=== PATIENT | female | born 1935 | race Caucasian/White ===

== ENCOUNTER 2019-02-26 15:30 | Emergency (ER) | payer OTHER, MEDICARE ==
[2019-02-26 16:09] VITALS: BMI 33.8
--- NOTE | 2019-02-26 16:58 | PDOC ---
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 Pt was being rolled over this morning when G tube came out. Pt is unable to speak but states he can understand when she's in pain or discomfort. denies any pain or changes. Pt is at baseline. denies redness, warmth, leaking, bleeding, or drainage from G tube site. G tube was placed 3 years ago at [facility] and has needed to be replaced after accidental displacement approx 3x/yr which is usually done at [facility] but the doctor was not available today. Pt is on vent, AC12, TV 350, O2 35%, peep 5. denies fever or pain. I called [facility] and nurse stated there are no complaints; pt just needs G tube replaced, size 18. Past History - Past Medical History Allergies/Adverse Reactions: Allergies Allergy/AdvReac Type Severity Reaction Status Date / Time norepinephrine Allergy Verified 02/26/19 16:58 - Suicide/Smoking/Psychosocial Hx Smoking History: Never smoked Review of Systems - Review of Systems Able to Perform ROS?: No *Physical Exam - Vital Signs Last Vital Signs Temp Pulse Resp BP Pulse Ox 98.1 F 68 20 126/66 100 02/26/19 16:00 02/26/19 16:00 02/26/19 16:00 02/26/19 16:00 02/26/19 16:10 - Physical Exam Comments: 02/26/19 20:05 Gen: On trach, NAD, comfortable-appearing. HEENT: PERRL, MMM, NCAT. No conjunctival pallor. Sclera are non-icteric. Tracheostomy in place, no erythema, drainage, bleeding, or warmth. CV: Regular rate and rhythm. No murmurs, rubs, or gallops. PULM: No resp distress. CTAB, no wheezes, rales, or rhonchi. ABD: soft, NT/ND, no erythema/drainage/bleeding/warmth around G tube insertion site. MSK: No bony deformities. 2+ pulses in all extremities. NEURO: AAOx3. PERRL. 0/5 strength and no sensation in all extremities (chronic). EXTREMITIES: No cyanosis. No clubbing. No edema. PSYCH: Unable to assess. SKIN: Warm and dry. Normal capillary refill. No rashes. No jaundice. 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 G tube has been in for 3 years and has been replaced approx 3x/yr. No s/s concerning for obstruction, infection, or bleed. No other complaints, hemodynamically stable, baseline mental status. -Replace G tube 18 and XR w/contrast to confirm placement -Dispo: likely d/c home pending confirmation G tube placed successfully. XR confirms placement. states they are ready to go. Will dc to [facility]. Return precautions given. Pt's understands all dc instructions and all questions were answered. *DC/Admit/Observation/Transfer Diagnosis at time of Disposition: Gastrojejunostomy tube dislodgement - Discharge Dispostion Disposition: [facility] Condition at time of disposition: Improved Decision to Admit order: No - Referrals Referrals: Dalila Rodriguez [Primary Care Provider] - - Patient Instructions Printed Discharge Instructions: How to Care for Your PEG Tube Additional Instructions: You have been seen in the Emergency Department for your G tube displacement. We have replaced it and taken a X-ray to confirm it is in the correct place. Follow-up with your primary care doctor within 1 week. Return to the ED immediately if you the G tube dislodges, leaks, bleeds, or develops erythema or warmth, or if you experience fever or any other new or worsening symptom. - Post Discharge Activity
[2019-02-26 19:26] VITALS: TEMP 97.2
[2019-02-26 21:28] VITALS: BP 131/67; PULSE 68
== END 2019-02-26 21:50 ==
LOC: JER 15:30
PROC: 0D20XUZ Change Feeding Device in Upper Intestinal Tract, External Approach (ICD-10-PCS; principal; 2019-02-26)
DX: Z43.1 Encounter for attention to gastrostomy (principal); J44.9 Chronic obstructive pulmonary disease, unspecified; G30.9 Alzheimer's disease, unspecified; F02.80 Dementia in other diseases classified elsewhere, unspecified severity, without behavioral disturbance, psychotic disturbance, mood disturbance, and anxiety; I69.869 Other paralytic syndrome following other cerebrovascular disease affecting unspecified side; Z93.0 Tracheostomy status
CPT/HCPCS: 43762; 74190-TC-FY; 99282-25

== ENCOUNTER 2020-06-13 18:02 | Inpatient (IN) | payer OTHER, MEDICARE ==
[2020-06-13] MEDS ORDERED: VANCOMYCIN 1 GM in D5W (PRE-DOCKED) 1,000 MG/250 ML IVPB ONE (18:25)
[2020-06-13] MEDS ORDERED: PIPERACILLIN/TAZOB 4.5 GM 4.5 GM in DEXTROSE 5%-WATER 100 ML IVPB ONE (18:25)
[2020-06-13] MEDS ORDERED: NOREPINEPHRINE BITARTRATE 8,000 MCG/500 ML BAG IVPB SCH (18:30)
[2020-06-13] MEDS ORDERED: NOREPINEPHRINE BITARTRATE 4 MG/4 ML ML IV ONE (18:35)
[2020-06-13 18:39] LABS: INR 1.09 (0.83-1.09); PROTHROMBIN TIME (PATIENT) 13.2 SEC (9.7-13.0)
[2020-06-13 18:42] LABS: ACTIVATED PTT 17.5 SECONDS (25.2-36.5)
[2020-06-13] MEDS ORDERED: PIPERACILLIN/TAZOB 4.5 GM 4.5 GM/100 ML BAG IVPB ONE (18:52)
[2020-06-13] MEDS ORDERED: VANCOMYCIN 1 GRAM (PRE-DOCKED) 1,000 MG/250 ML BAG IVPB ONE (18:52)
[2020-06-13 19:01] LABS: BASO % 0.3 % (0-2.0); CHLORIDE 126 mmol/L (98-107); HEMOGLOBIN 12.3 GM/dL (10.7-15.3); LYMPH % 13.4 % (8-40); MCH 30.9 pg (25.7-33.7); MCHC 30.1 g/dl (32.0-36.0); MEAN CELL VOLUME 102.9 fl (80-96); MEAN PLT VOLUME 12.2 fl (7.5-11.1); MONO % 8.4 % (3.8-10.2); NEUT % 76.9 % (42.8-82.8); PLATELET COUNT 246 K/MM3 (134-434); RBC 3.99 M/mm3 (3.60-5.2); RDW 18.4 % (11.6-15.6); SODIUM 152 mmol/L (136-145); WHITE BLOOD COUNT 11.8 K/mm3 (4.0-10.0)
[2020-06-13 19:02] LABS: CALCIUM 7.5 mg/dL (8.5-10.1); CO2 20 mmol/L (21-32)
[2020-06-13 19:03] LABS: ALBUMIN 1.4 g/dl (3.4-5.0); BLOOD UREA NITROGEN 87.8 mg/dL (7-18); GLUCOSE,RANDOM 141 mg/dL (74-106)
[2020-06-13 19:06] LABS: CREATININE 1.1 mg/dL (0.55-1.3); SGOT/AST 9 U/L (15-37); SGPT/ALT 8 U/L (13-61)
[2020-06-13 19:08] LABS: BILIRUBIN,TOTAL 0.4 mg/dL (0.2-1); TOT PROT 4.9 g/dl (6.4-8.2)
[2020-06-13 19:09] LABS: ALK PHOS 108 U/L (45-117)
[2020-06-13 19:15] LABS: ANION GAP 7 MMOL/L (8-16)
[2020-06-13 19:18] LABS: POTASSIUM 7.1 mmol/L (3.5-5.1)
[2020-06-13] MEDS ORDERED: CALCIUM GLUCONATE 10% - 1,000 MG/10 ML VIAL IVPUSH ONE ×2 (19:18→22:34)
[2020-06-13] MEDS ORDERED: DEXTROSE 50%-WATER - 25 GM/50 ML VIAL IVPUSH ONE (19:19)
[2020-06-13] MEDS ORDERED: INSULIN REGULAR HUMAN 100 UNITS/ML *VIAL IVPUSH ONE (19:19)
[2020-06-13] MEDS ORDERED: SODIUM BICARBONATE 8.4% 50 MEQ/50 ML DISP.SYRIN IVPUSH ONE (19:20)
[2020-06-13] MEDS ORDERED: CALCIUM GLUCONATE 10% - 1,000 MG/10 ML VIAL ONE ×2 (19:20→22:29)
[2020-06-13] MEDS ORDERED: DEXTROSE 50%-WATER 25 GM/50 ML DISP.SYRIN ONE (19:20)
[2020-06-13] MEDS ORDERED: SODIUM BICARBONATE 8.4% - 50 ML ONE (19:31)
[2020-06-13] MEDS ORDERED: LACTATED RINGERS SOLUTION 1000 ML INFUS.BAG IV ONE ×2 (19:43→22:08)
[2020-06-13 20:13] LABS: VENOUS BASE EXCESS -8.7 mmol/L (-2-2); VENOUS O2 SATURATION 65.6 % (70-80); VENOUS PCO2 42.5 mmHg (38-52); VENOUS PH 7.249 (7.310-7.410)
[2020-06-13] MEDS ORDERED: SODIUM ZIRCONIUM CYCLOSILICATE (LOKELMA) 5 GM PACKET PO SCH (20:15)
[2020-06-13 20:33] LABS: CALCIUM 7.5 mg/dL (8.5-10.1); POTASSIUM 5.4 mmol/L (3.5-5.1)
[2020-06-13 20:35] LABS: ALBUMIN 1.1 g/dl (3.4-5.0); BLOOD UREA NITROGEN 83.2 mg/dL (7-18)
[2020-06-13 20:37] LABS: CREATININE 1.1 mg/dL (0.55-1.3)
[2020-06-13 20:39] LABS: BILIRUBIN,TOTAL 0.7 mg/dL (0.2-1); TOT PROT 3.9 g/dl (6.4-8.2)
[2020-06-13 20:43] LABS: EPI CELLS >36 /uL (0-25.1); HYALINE CASTS 58 /uL (0-3.1); URINE APPEARANCE TURBID; URINE BACTERIA >9,000 /uL (0-1359); URINE BILIRUBIN 1+ (NEGATIVE); URINE COLOR DK YELLOW; URINE GLUCOSE (UA) NEGATIVE (NEGATIVE); URINE KETONE NEGATIVE (NEGATIVE); URINE LEUK ESTERASE 2+ (NEGATIVE); URINE NITRITE POSITIVE (NEGATIVE); URINE PROTEIN 2+ (NEGATIVE); URINE UROBILINOGEN 0.2 mg/dL (0.2-1.0); URINE WBC 6361 /uL (0-25.8)
[2020-06-13] MEDS ORDERED: DOPAMINE 400 MG/D5W - 400,000 MCG/250 ML INFUS.BAG IVPB ONE (21:07)
[2020-06-13] MEDS: DOPAMINE 400 MG/D5W - 400,000 MCG/250 ML INFUS.BAG IVPB SCH (21:35)
[2020-06-13] MEDS ORDERED: SODIUM ZIRCONIUM CYCLOSILICATE (LOKELMA) 10 GM PACKET PO SCH (21:44)
[2020-06-13 21:50] LABS: ANISOCYTOSIS 1+; MACROCYTOSIS 1+; PLATELET ESTIMATE NORMAL
[2020-06-13 22:25] LABS: URINE RBC 63.4 /uL (0-23.9); YEAST NEGATIVE (NEGATIVE)
[2020-06-13] MEDS ORDERED: VASOPRESSIN 20 UNITS/ML VIAL IV ONE (22:41)
[2020-06-13] MEDS: VASOPRESSIN 40 UNITS in SODIUM CHLORIDE 98 ML IVPB SCH (22:53)
[2020-06-14] MEDS: NOREPINEPHRINE BITARTRATE 4,000 MCG in DEXTROSE 5%-WATER - 496 ML IV SCH (02:00)
[2020-06-14] MEDS: LACTATED RINGERS SOLUTION 1000 ML INFUS.BAG IV PRN ×2 (03:48→06:53)
[2020-06-14] MEDS: INSULIN SLIDING SCALE (NOVOLOG) 1 VIAL SQ SCH ×4 (06:42→21:59)
[2020-06-14] MEDS: HEPARIN NA (PORCINE) 5,000 UNITS/ML 1ML VIAL SQ SCH ×3 (06:43→21:49)
[2020-06-14] MEDS: ACETAMINOPHEN 1000 MG/100 ML VIAL (NON FORMULARY) IVPB PRN ×2 (06:54→13:32)
[2020-06-14 07:30] LABS: BASO % 0.2 % (0-2.0); EOS % 0.4 % (0-4.5); HEMATOCRIT 46.1 % (32.4-45.2); HEMOGLOBIN 14.1 GM/dL (10.7-15.3); LYMPH % 8.4 % (8-40); MCH 31.2 pg (25.7-33.7); MCHC 30.5 g/dl (32.0-36.0); MEAN CELL VOLUME 102.4 fl (80-96); MEAN PLT VOLUME 12.4 fl (7.5-11.1); MONO % 5.3 % (3.8-10.2); NEUT % 85.7 % (42.8-82.8); PLATELET COUNT 251 K/MM3 (134-434); RDW 18.1 % (11.6-15.6); WHITE BLOOD COUNT 16.1 K/mm3 (4.0-10.0)
[2020-06-14 07:53] LABS: POTASSIUM 5.3 mmol/L (3.5-5.1)
[2020-06-14] MEDS ORDERED: PNEUMOC 13-VAL CONJ-DIP CRM/PF 0.5 ML DISP.SYRIN IM ONE (08:00)
[2020-06-14 08:12] LABS: CALCIUM 7.7 mg/dL (8.5-10.1)
[2020-06-14 08:13] LABS: BLOOD UREA NITROGEN 66.6 mg/dL (7-18); MAGNESIUM 3.2 mg/dL (1.8-2.4)
[2020-06-14 08:16] LABS: ALBUMIN 1.2 g/dl (3.4-5.0); CREATININE 0.8 mg/dL (0.55-1.3); PHOSPHOROUS 4.5 mg/dL (2.5-4.9)
[2020-06-14 08:17] LABS: BILIRUBIN,TOTAL 0.8 mg/dL (0.2-1)
[2020-06-14 08:20] LABS: TOT PROT 4.6 g/dl (6.4-8.2)
[2020-06-14] MEDS ORDERED: DEXTROSE 5%-WATER 100 ML IVPB ONE ×2 (08:53→18:22)
[2020-06-14] MEDS ORDERED: MEROPENEM 1 GM VIAL (RESTRICTED TO ID) IVPB ONE ×2 (08:53→18:22)
[2020-06-14] MEDS: MEROPENEM 1 GM in DEXTROSE 5%-WATER 100 ML IVPB SCH ×2 (08:57→18:25)
[2020-06-14 09:52] LABS: ANISOCYTOSIS 1+; MACROCYTOSIS 1+; PLATELET ESTIMATE NORMAL
[2020-06-14] MEDS: MUPIROCIN 2% TOPICAL OINTMENT FOR DECOLONIZATION NS SCH ×2 (11:08→21:54)
[2020-06-14] MEDS: DEXTROSE 5%-WATER - 1,000 ML IV SCH (16:00)
[2020-06-14] MEDS: DOPAMINE 400 MG/D5W - 400,000 MCG/250 ML INFUS.BAG IVPB SCH (21:15)
[2020-06-14] MEDS: CHLORHEXIDINE GLUCONATE 4% CLEANSER FOR DECOLONIZATION TP SCH (21:49)
[2020-06-14] MEDS: VASOPRESSIN 40 UNITS in SODIUM CHLORIDE 98 ML IVPB SCH (22:45)
[2020-06-15] MEDS: NOREPINEPHRINE BITARTRATE 4,000 MCG in DEXTROSE 5%-WATER - 496 ML IV SCH ×2 (02:45→17:45)
[2020-06-15] MEDS: MEROPENEM 1 GM in DEXTROSE 5%-WATER 100 ML IVPB SCH (03:04)
[2020-06-15] MEDS: INSULIN SLIDING SCALE (NOVOLOG) 1 VIAL SQ SCH ×4 (06:50→21:20)
[2020-06-15] MEDS: HEPARIN NA (PORCINE) 5,000 UNITS/ML 1ML VIAL SQ SCH ×3 (06:50→21:16)
[2020-06-15 07:35] LABS: BASO % 0.4 % (0-2.0); EOS % 2.2 % (0-4.5); HEMATOCRIT 43.2 % (32.4-45.2); HEMOGLOBIN 13.1 GM/dL (10.7-15.3); LYMPH % 14.8 % (8-40); MCH 30.6 pg (25.7-33.7); MCHC 30.4 g/dl (32.0-36.0); MEAN CELL VOLUME 100.4 fl (80-96); MEAN PLT VOLUME 12.1 fl (7.5-11.1); MONO % 5.1 % (3.8-10.2); NEUT % 77.5 % (42.8-82.8); PLATELET COUNT 249 K/MM3 (134-434); RDW 18.1 % (11.6-15.6); WHITE BLOOD COUNT 14.4 K/mm3 (4.0-10.0)
[2020-06-15 07:51] LABS: POTASSIUM 4.1 mmol/L (3.5-5.1)
[2020-06-15 07:55] LABS: ALBUMIN 1.2 g/dl (3.4-5.0); BLOOD UREA NITROGEN 51.4 mg/dL (7-18); MAGNESIUM 2.6 mg/dL (1.8-2.4)
[2020-06-15 07:58] LABS: BILIRUBIN,TOTAL 0.5 mg/dL (0.2-1); CREATININE 0.6 mg/dL (0.55-1.3); PHOSPHOROUS 3.9 mg/dL (2.5-4.9); TOT PROT 4.3 g/dl (6.4-8.2)
[2020-06-15] MEDS: DEXTROSE 5%-WATER - 1,000 ML IV SCH ×2 (09:00→17:46)
[2020-06-15 09:26] LABS: CALCIUM 6.8 mg/dL (8.5-10.1)
[2020-06-15] MEDS ORDERED: MEROPENEM 1 GM in DEXTROSE 5%-WATER 100 ML IVPB SCH (10:00)
[2020-06-15] MEDS ORDERED: MEROPENEM 1 GM VIAL (RESTRICTED TO ID) IVPB ONE (10:09)
[2020-06-15] MEDS ORDERED: DEXTROSE 5%-WATER 100 ML IVPB ONE (10:10)
[2020-06-15] MEDS ORDERED: PIPERACILLIN/TAZOB 3.375 GM 3.375 GM in DEXTROSE 5%-WATER - 50 ML IVPB SCH (10:15)
[2020-06-15] MEDS: VASOPRESSIN 40 UNITS in SODIUM CHLORIDE 98 ML IVPB SCH ×2 (11:22→18:45)
[2020-06-15] MEDS: MUPIROCIN 2% TOPICAL OINTMENT FOR DECOLONIZATION NS SCH ×2 (11:26→21:16)
[2020-06-15] MEDS ORDERED: PIPERACILLIN/TAZOBACTAM 3.375 GM VIAL IVPB ONE (11:28)
[2020-06-15] MEDS ORDERED: DEXTROSE 5%-WATER - 50 ML IVPB ONE (11:28)
[2020-06-15 13:36] LABS: ANISOCYTOSIS 1+; MACROCYTOSIS 1+; PLATELET ESTIMATE NORMAL
[2020-06-15] MEDS ORDERED: PT OWN MED DRAWER 7, Y5N ONE ×3 (16:14→17:35)
[2020-06-15] MEDS ORDERED: NOREPINEPHRINE BITARTRATE 4 MG/4 ML ML IV ONE (17:41)
[2020-06-15] MEDS: ERTAPENEM SODIUM 1 GM in SODIUM CHLORIDE 50 ML IVPB SCH (17:54)
[2020-06-15] MEDS: DOPAMINE 400 MG/D5W - 400,000 MCG/250 ML INFUS.BAG IVPB SCH (21:16)
[2020-06-15] MEDS: CHLORHEXIDINE GLUCONATE 4% CLEANSER FOR DECOLONIZATION TP SCH (21:16)
[2020-06-16] MEDS: VASOPRESSIN 40 UNITS in SODIUM CHLORIDE 98 ML IVPB SCH ×2 (01:10→06:42)
[2020-06-16] MEDS: NOREPINEPHRINE BITARTRATE 4,000 MCG in DEXTROSE 5%-WATER - 496 ML IV SCH ×5 (02:00→21:16)
[2020-06-16] MEDS: DEXTROSE 5%-WATER - 1,000 ML IV SCH (02:00)
[2020-06-16] MEDS: HEPARIN NA (PORCINE) 5,000 UNITS/ML 1ML VIAL SQ SCH ×3 (06:12→21:15)
[2020-06-16] MEDS: INSULIN SLIDING SCALE (NOVOLOG) 1 VIAL SQ SCH ×4 (06:41→21:15)
[2020-06-16 06:54] LABS: HEMATOCRIT 41.4 % (32.4-45.2); HEMOGLOBIN 12.9 GM/dL (10.7-15.3); MCH 30.4 pg (25.7-33.7); MCHC 31.3 g/dl (32.0-36.0); MEAN CELL VOLUME 97.2 fl (80-96); PLATELET COUNT 198 K/MM3 (134-434); RBC 4.26 M/mm3 (3.60-5.2); RDW 17.1 % (11.6-15.6); WHITE BLOOD COUNT 12.1 K/mm3 (4.0-10.0)
[2020-06-16 07:05] LABS: CALCIUM 7.1 mg/dL (8.5-10.1); POTASSIUM 3.5 mmol/L (3.5-5.1)
[2020-06-16 07:07] LABS: ALBUMIN 1.1 g/dl (3.4-5.0); BLOOD UREA NITROGEN 35.2 mg/dL (7-18)
[2020-06-16 07:09] LABS: CREATININE 0.3 mg/dL (0.55-1.3)
[2020-06-16 07:11] LABS: BILIRUBIN,TOTAL 0.5 mg/dL (0.2-1); TOT PROT 4.2 g/dl (6.4-8.2)
[2020-06-16] MEDS: MUPIROCIN 2% TOPICAL OINTMENT FOR DECOLONIZATION NS SCH ×2 (11:05→21:16)
[2020-06-16] MEDS: ERTAPENEM SODIUM 1 GM in SODIUM CHLORIDE 50 ML IVPB SCH (11:06)
[2020-06-16] MEDS: CHLORHEXIDINE GLUCONATE 4% CLEANSER FOR DECOLONIZATION TP SCH (21:15)
[2020-06-17] MEDS: VASOPRESSIN 40 UNITS in SODIUM CHLORIDE 98 ML IVPB SCH ×3 (01:10→22:48)
[2020-06-17] MEDS: HEPARIN NA (PORCINE) 5,000 UNITS/ML 1ML VIAL SQ SCH ×3 (06:24→22:45)
[2020-06-17] MEDS: INSULIN SLIDING SCALE (NOVOLOG) 1 VIAL SQ SCH ×4 (06:38→22:46)
[2020-06-17 07:11] LABS: BASO % 0.5 % (0-2.0); EOS % 1.8 % (0-4.5); HEMATOCRIT 37.4 % (32.4-45.2); HEMOGLOBIN 11.9 GM/dL (10.7-15.3); LYMPH % 12.1 % (8-40); MCH 30.5 pg (25.7-33.7); MCHC 31.7 g/dl (32.0-36.0); MEAN CELL VOLUME 96.2 fl (80-96); MEAN PLT VOLUME 11.3 fl (7.5-11.1); MONO % 6.8 % (3.8-10.2); NEUT % 78.8 % (42.8-82.8); PLATELET COUNT 182 K/MM3 (134-434); RBC 3.89 M/mm3 (3.60-5.2); RDW 16.6 % (11.6-15.6); WHITE BLOOD COUNT 10.9 K/mm3 (4.0-10.0)
[2020-06-17 07:21] LABS: POTASSIUM 3.8 mmol/L (3.5-5.1)
[2020-06-17 07:28] LABS: CALCIUM 7.2 mg/dL (8.5-10.1)
[2020-06-17 07:29] LABS: ALBUMIN 1.2 g/dl (3.4-5.0); BLOOD UREA NITROGEN 28.9 mg/dL (7-18); MAGNESIUM 2.1 mg/dL (1.8-2.4)
[2020-06-17 07:32] LABS: CREATININE 0.2 mg/dL (0.55-1.3); PHOSPHOROUS 2.6 mg/dL (2.5-4.9)
[2020-06-17 07:33] LABS: BILIRUBIN,TOTAL 0.4 mg/dL (0.2-1)
[2020-06-17] MEDS: MUPIROCIN 2% TOPICAL OINTMENT FOR DECOLONIZATION NS SCH ×2 (10:43→22:45)
[2020-06-17] MEDS: ERTAPENEM SODIUM 1 GM in SODIUM CHLORIDE 50 ML IVPB SCH (10:43)
[2020-06-17 10:51] LABS: ANISOCYTOSIS 1+; MACROCYTOSIS 0; PLATELET ESTIMATE NORMAL; TEAR DROP CELLS 1+
[2020-06-17] MEDS: NOREPINEPHRINE BITARTRATE 4,000 MCG in DEXTROSE 5%-WATER - 496 ML IV SCH ×2 (16:11→17:25)
[2020-06-17] MEDS ORDERED: NOREPINEPHRINE BITARTRATE 4 MG/4 ML ML IV ONE (17:19)
[2020-06-17] MEDS ORDERED: PT OWN MED DRAWER 7, Y5N ONE (18:22)
[2020-06-17] MEDS: CHLORHEXIDINE GLUCONATE 4% CLEANSER FOR DECOLONIZATION TP SCH (22:46)
[2020-06-18] MEDS: HEPARIN NA (PORCINE) 5,000 UNITS/ML 1ML VIAL SQ SCH ×4 (06:18→21:54)
[2020-06-18] MEDS: INSULIN SLIDING SCALE (NOVOLOG) 1 VIAL SQ SCH ×4 (06:18→21:12)
[2020-06-18 06:23] LABS: BASO % 0.4 % (0-2.0); EOS % 1.6 % (0-4.5); HEMATOCRIT 39.3 % (32.4-45.2); HEMOGLOBIN 12.5 GM/dL (10.7-15.3); LYMPH % 8.4 % (8-40); MCH 30.5 pg (25.7-33.7); MCHC 31.7 g/dl (32.0-36.0); MEAN CELL VOLUME 96.2 fl (80-96); MEAN PLT VOLUME 11.2 fl (7.5-11.1); MONO % 3.1 % (3.8-10.2); NEUT % 86.5 % (42.8-82.8); PLATELET COUNT 211 K/MM3 (134-434); RBC 4.09 M/mm3 (3.60-5.2); RDW 16.5 % (11.6-15.6)
[2020-06-18 06:46] LABS: POTASSIUM 3.5 mmol/L (3.5-5.1)
[2020-06-18 06:51] LABS: ALBUMIN 1.3 g/dl (3.4-5.0); BLOOD UREA NITROGEN 22.9 mg/dL (7-18); CALCIUM 7.2 mg/dL (8.5-10.1)
[2020-06-18 06:53] LABS: MAGNESIUM 1.9 mg/dL (1.8-2.4)
[2020-06-18 06:54] LABS: CREATININE 0.2 mg/dL (0.55-1.3); PHOSPHOROUS 1.9 mg/dL (2.5-4.9)
[2020-06-18 06:55] LABS: BILIRUBIN,TOTAL 0.4 mg/dL (0.2-1); TOT PROT 4.4 g/dl (6.4-8.2)
[2020-06-18] MEDS: MUPIROCIN 2% TOPICAL OINTMENT FOR DECOLONIZATION NS SCH ×2 (10:02→21:07)
[2020-06-18] MEDS: SILVER SULFADIAZINE 1% TOP CREAM 50 GM JAR TP SCH ×2 (11:03→11:04)
[2020-06-18] MEDS ORDERED: SODIUM CHLORIDE 500 ML IV STA (11:27)
[2020-06-18] MEDS: ERTAPENEM SODIUM 1 GM in SODIUM CHLORIDE 50 ML IVPB SCH (11:34)
[2020-06-18 11:57] LABS: ANISOCYTOSIS 1+; MACROCYTOSIS 1+; PLATELET ESTIMATE NORMAL
[2020-06-18] MEDS: NOREPINEPHRINE BITARTRATE 8,000 MCG in DEXTROSE 5%-WATER - 492 ML IV SCH (12:00)
[2020-06-18] MEDS: CHLORHEXIDINE GLUCONATE 4% CLEANSER FOR DECOLONIZATION TP SCH (21:08)
[2020-06-19] MEDS ORDERED: NOREPINEPHRINE BITARTRATE 8,000 MCG/500 ML BAG IVPB ONE (05:29)
[2020-06-19] MEDS: INSULIN SLIDING SCALE (NOVOLOG) 1 VIAL SQ SCH ×3 (06:21→21:17)
[2020-06-19 06:41] LABS: BASO % 0.5 % (0-2.0); EOS % 2.2 % (0-4.5); HEMATOCRIT 37.2 % (32.4-45.2); HEMOGLOBIN 12.1 GM/dL (10.7-15.3); LYMPH % 11.7 % (8-40); MCHC 32.4 g/dl (32.0-36.0); MEAN CELL VOLUME 95.6 fl (80-96); MEAN PLT VOLUME 10.9 fl (7.5-11.1); NEUT % 81.6 % (42.8-82.8); PLATELET COUNT 203 K/MM3 (134-434); RDW 16.8 % (11.6-15.6); WHITE BLOOD COUNT 8.9 K/mm3 (4.0-10.0)
[2020-06-19] MEDS: VASOPRESSIN 40 UNITS in SODIUM CHLORIDE 98 ML IVPB SCH (07:11)
[2020-06-19 07:15] LABS: CHLORIDE 104 mmol/L (98-107); POTASSIUM 3.1 mmol/L (3.5-5.1); SODIUM 137 mmol/L (136-145)
[2020-06-19 07:21] LABS: ALBUMIN 1.2 g/dl (3.4-5.0); GLUCOSE,RANDOM 110 mg/dL (74-106)
[2020-06-19 07:23] LABS: ANION GAP 7 MMOL/L (8-16); BLOOD UREA NITROGEN 15.1 mg/dL (7-18); CALCIUM 7.1 mg/dL (8.5-10.1); CO2 25 mmol/L (21-32); MAGNESIUM 1.7 mg/dL (1.8-2.4)
[2020-06-19 07:24] LABS: PHOSPHOROUS 1.5 mg/dL (2.5-4.9); SGOT/AST 17 U/L (15-37); SGPT/ALT 8 U/L (13-61)
[2020-06-19] MEDS ORDERED: POTASSIUM CHLORIDE TABS 20 MEQ TABLET.ER (FP) PO ONE (07:25)
[2020-06-19 07:26] LABS: TOT PROT 4.2 g/dl (6.4-8.2)
[2020-06-19 07:27] LABS: ALK PHOS 129 U/L (45-117)
[2020-06-19 07:30] LABS: BILIRUBIN,TOTAL 0.4 mg/dL (0.2-1)
[2020-06-19 07:36] LABS: CREATININE < 0.2 mg/dL (0.55-1.3)
[2020-06-19] MEDS ORDERED: MAGNESIUM SULF 50% (8.12 MEQ/2 ML-1 GM VIAL) IVPB ONE (07:40)
[2020-06-19] MEDS ORDERED: MAGNESIUM 1GM/D5W - 1 GM/100 ML IVPB IVPB ONE (08:00)
[2020-06-19] MEDS: KCL 10 MEQ IVPB 10 MEQ/100 ML INFUS.BAG IVPB SCH ×3 (10:21→13:08)
[2020-06-19] MEDS: ERTAPENEM SODIUM 1 GM in SODIUM CHLORIDE 50 ML IVPB SCH (10:22)
[2020-06-19] MEDS: NOREPINEPHRINE BITARTRATE 8,000 MCG in DEXTROSE 5%-WATER - 492 ML IV SCH ×2 (10:23→13:10)
[2020-06-19] MEDS: HEPARIN NA (PORCINE) 5,000 UNITS/ML 1ML VIAL SQ SCH ×2 (10:23→21:09)
[2020-06-19 11:59] LABS: ANISOCYTOSIS 0; MACROCYTOSIS 0; PLATELET ESTIMATE NORMAL
[2020-06-19] MEDS: SILVER SULFADIAZINE 1% TOP CREAM 50 GM JAR TP SCH (12:07)
[2020-06-19] MEDS ORDERED: POTASSIUM CHLORIDE ORAL LIQUID 20 MEQ/15 ML PO ONE (12:19)
[2020-06-19] MEDS: CHLORHEXIDINE GLUCONATE 4% CLEANSER FOR DECOLONIZATION TP SCH (21:09)
[2020-06-20] MEDS: VASOPRESSIN 40 UNITS in SODIUM CHLORIDE 98 ML IVPB SCH (01:54)
[2020-06-20] MEDS: INSULIN SLIDING SCALE (NOVOLOG) 1 VIAL SQ SCH ×4 (06:04→21:50)
[2020-06-20 07:26] LABS: BASO % 0.5 % (0-2.0); EOS % 1.5 % (0-4.5); HEMATOCRIT 37.8 % (32.4-45.2); LYMPH % 13.3 % (8-40); MCH 30.5 pg (25.7-33.7); MCHC 31.7 g/dl (32.0-36.0); MEAN CELL VOLUME 96.2 fl (80-96); MEAN PLT VOLUME 10.9 fl (7.5-11.1); MONO % 4.4 % (3.8-10.2); NEUT % 80.3 % (42.8-82.8); PLATELET COUNT 221 K/MM3 (134-434); POTASSIUM 4.3 mmol/L (3.5-5.1); RBC 3.93 M/mm3 (3.60-5.2); RDW 17.3 % (11.6-15.6); WHITE BLOOD COUNT 10.1 K/mm3 (4.0-10.0)
[2020-06-20 08:04] LABS: ALBUMIN 1.2 g/dl (3.4-5.0); BLOOD UREA NITROGEN 16.6 mg/dL (7-18)
[2020-06-20 08:06] LABS: MAGNESIUM 2.1 mg/dL (1.8-2.4)
[2020-06-20 08:07] LABS: CREATININE 0.2 mg/dL (0.55-1.3); PHOSPHOROUS 1.8 mg/dL (2.5-4.9)
[2020-06-20 08:08] LABS: BILIRUBIN,TOTAL 0.3 mg/dL (0.2-1); TOT PROT 4.1 g/dl (6.4-8.2)
[2020-06-20 08:15] LABS: CALCIUM 6.9 mg/dL (8.5-10.1)
[2020-06-20] MEDS ORDERED: PT OWN MED DRAWER 7, Y5N ONE (08:49)
[2020-06-20] MEDS: SILVER SULFADIAZINE 1% TOP CREAM 50 GM JAR TP SCH (09:00)
[2020-06-20] MEDS: HEPARIN NA (PORCINE) 5,000 UNITS/ML 1ML VIAL SQ SCH ×2 (09:00→21:33)
[2020-06-20] MEDS: ERTAPENEM SODIUM 1 GM in SODIUM CHLORIDE 50 ML IVPB SCH (09:00)
[2020-06-20 10:57] LABS: ANISOCYTOSIS 1+; MACROCYTOSIS 1+; PLATELET ESTIMATE NORMAL
[2020-06-20] MEDS: NOREPINEPHRINE BITARTRATE 8,000 MCG in DEXTROSE 5%-WATER - 492 ML IV SCH (12:46)
[2020-06-20] MEDS: NOREPINEPHRINE BITARTRATE 8,000 MCG/500 ML BAG IVPB SCH (17:28)
[2020-06-20] MEDS: CHLORHEXIDINE GLUCONATE 4% CLEANSER FOR DECOLONIZATION TP SCH (21:33)
[2020-06-21] MEDS: VASOPRESSIN 40 UNITS in SODIUM CHLORIDE 98 ML IVPB SCH (01:51)
[2020-06-21] MEDS ORDERED: LORazepam 2 MG/ML SDV VIAL ONE (01:54)
[2020-06-21] MEDS ORDERED: LORazepam 2 MG/ML SDV VIAL IVPUSH ONE (01:54)
[2020-06-21] MEDS: INSULIN SLIDING SCALE (NOVOLOG) 1 VIAL SQ SCH ×4 (06:55→21:03)
[2020-06-21 07:25] LABS: HEMATOCRIT 36.9 % (32.4-45.2); HEMOGLOBIN 11.9 GM/dL (10.7-15.3); MCH 30.8 pg (25.7-33.7); MCHC 32.2 g/dl (32.0-36.0); MEAN CELL VOLUME 95.7 fl (80-96); MEAN PLT VOLUME 10.9 fl (7.5-11.1); PLATELET COUNT 210 K/MM3 (134-434); RBC 3.85 M/mm3 (3.60-5.2); RDW 17.8 % (11.6-15.6); WHITE BLOOD COUNT 8.5 K/mm3 (4.0-10.0)
[2020-06-21 07:51] LABS: CHLORIDE 108 mmol/L (98-107); POTASSIUM 3.4 mmol/L (3.5-5.1); SODIUM 139 mmol/L (136-145)
[2020-06-21 07:53] LABS: ALBUMIN 1.2 g/dl (3.4-5.0); ANION GAP 7 MMOL/L (8-16); BLOOD UREA NITROGEN 14.9 mg/dL (7-18); CO2 24 mmol/L (21-32); GLUCOSE,RANDOM 128 mg/dL (74-106); MAGNESIUM 1.8 mg/dL (1.8-2.4)
[2020-06-21 07:56] LABS: CREATININE 0.2 mg/dL (0.55-1.3); PHOSPHOROUS 2.2 mg/dL (2.5-4.9); SGOT/AST 11 U/L (15-37)
[2020-06-21 07:57] LABS: BILIRUBIN,TOTAL 0.4 mg/dL (0.2-1)
[2020-06-21 07:58] LABS: TOT PROT 3.8 g/dl (6.4-8.2)
[2020-06-21 07:59] LABS: ALK PHOS 133 U/L (45-117)
[2020-06-21 08:02] LABS: SGPT/ALT < 6 U/L (13-61)
[2020-06-21 08:06] LABS: CALCIUM 6.9 mg/dL (8.5-10.1)
[2020-06-21] MEDS ORDERED: POTASSIUM CHLORIDE ORAL LIQUID 20 MEQ/15 ML PO ONE (08:11)
[2020-06-21] MEDS ORDERED: NAPH,MB-DB/K PH,MBDB POWDER PACKET PO ONE (08:12)
[2020-06-21] MEDS: HEPARIN NA (PORCINE) 5,000 UNITS/ML 1ML VIAL SQ SCH ×2 (09:23→21:03)
[2020-06-21] MEDS ORDERED: PT OWN MED DRAWER 7, Y5N ONE (09:28)
[2020-06-21] MEDS: ERTAPENEM SODIUM 1 GM in SODIUM CHLORIDE 50 ML IVPB SCH (10:03)
[2020-06-21] MEDS: SILVER SULFADIAZINE 1% TOP CREAM 50 GM JAR TP SCH (10:03)
[2020-06-21] MEDS ORDERED: MAGNESIUM 1GM/D5W 100ML - 100 ML IVPB IVPB ONE (11:24)
[2020-06-21] MEDS: NOREPINEPHRINE BITARTRATE 8,000 MCG/500 ML BAG IVPB SCH ×2 (17:13→17:59)
[2020-06-21] MEDS: CHLORHEXIDINE GLUCONATE 4% CLEANSER FOR DECOLONIZATION TP SCH (21:05)
[2020-06-22] MEDS: VASOPRESSIN 40 UNITS in SODIUM CHLORIDE 98 ML IVPB SCH (04:57)
[2020-06-22 07:03] LABS: BASO % 0.7 % (0-2.0); EOS % 1.2 % (0-4.5); HEMATOCRIT 36.3 % (32.4-45.2); HEMOGLOBIN 11.5 GM/dL (10.7-15.3); LYMPH % 16.8 % (8-40); MCH 30.8 pg (25.7-33.7); MCHC 31.8 g/dl (32.0-36.0); MEAN CELL VOLUME 96.7 fl (80-96); MEAN PLT VOLUME 10.5 fl (7.5-11.1); MONO % 5.7 % (3.8-10.2); NEUT % 75.6 % (42.8-82.8); PLATELET COUNT 199 K/MM3 (134-434); RBC 3.75 M/mm3 (3.60-5.2); RDW 17.5 % (11.6-15.6); WHITE BLOOD COUNT 7.7 K/mm3 (4.0-10.0)
[2020-06-22] MEDS: INSULIN SLIDING SCALE (NOVOLOG) 1 VIAL SQ SCH ×4 (07:03→22:20)
[2020-06-22 07:31] LABS: CHLORIDE 108 mmol/L (98-107); POTASSIUM 4.2 mmol/L (3.5-5.1); SODIUM 138 mmol/L (136-145)
[2020-06-22 07:38] LABS: ALBUMIN 1.2 g/dl (3.4-5.0); ANION GAP 4 MMOL/L (8-16); BLOOD UREA NITROGEN 11.5 mg/dL (7-18); CO2 26 mmol/L (21-32); GLUCOSE,RANDOM 107 mg/dL (74-106)
[2020-06-22 07:41] LABS: CREATININE 0.2 mg/dL (0.55-1.3); PHOSPHOROUS 2.3 mg/dL (2.5-4.9); SGOT/AST 12 U/L (15-37); SGPT/ALT < 6 U/L (13-61)
[2020-06-22 07:43] LABS: BILIRUBIN,TOTAL 0.6 mg/dL (0.2-1)
[2020-06-22] MEDS ORDERED: NAPH,MB-DB/K PH,MBDB POWDER PACKET PO ONE (07:43)
[2020-06-22 07:44] LABS: ALK PHOS 144 U/L (45-117)
[2020-06-22 07:52] LABS: CALCIUM 6.9 mg/dL (8.5-10.1)
[2020-06-22] MEDS: HEPARIN NA (PORCINE) 5,000 UNITS/ML 1ML VIAL SQ SCH ×2 (09:13→22:20)
[2020-06-22] MEDS: SILVER SULFADIAZINE 1% TOP CREAM 50 GM JAR TP SCH (09:14)
[2020-06-22] MEDS: NOREPINEPHRINE BITARTRATE 8,000 MCG/500 ML BAG IVPB SCH (15:13)
[2020-06-22] MEDS: CHLORHEXIDINE GLUCONATE 4% CLEANSER FOR DECOLONIZATION TP SCH (22:21)
[2020-06-23 07:06] LABS: BASO % 0.7 % (0-2.0); EOS % 1.1 % (0-4.5); HEMATOCRIT 34.7 % (32.4-45.2); LYMPH % 16.8 % (8-40); MCH 30.6 pg (25.7-33.7); MCHC 31.8 g/dl (32.0-36.0); MEAN CELL VOLUME 96.3 fl (80-96); MEAN PLT VOLUME 10.5 fl (7.5-11.1); MONO % 6.1 % (3.8-10.2); NEUT % 75.3 % (42.8-82.8); PLATELET COUNT 183 K/MM3 (134-434); RDW 17.9 % (11.6-15.6)
[2020-06-23 07:32] LABS: CHLORIDE 108 mmol/L (98-107); POTASSIUM 4.1 mmol/L (3.5-5.1); SODIUM 139 mmol/L (136-145)
[2020-06-23] MEDS: INSULIN SLIDING SCALE (NOVOLOG) 1 VIAL SQ SCH ×3 (07:34→16:35)
[2020-06-23 07:39] LABS: CALCIUM 7.1 mg/dL (8.5-10.1)
[2020-06-23 07:40] LABS: ALBUMIN 1.2 g/dl (3.4-5.0); ANION GAP 7 MMOL/L (8-16); BLOOD UREA NITROGEN 11.8 mg/dL (7-18); CO2 24 mmol/L (21-32); GLUCOSE,RANDOM 116 mg/dL (74-106)
[2020-06-23 07:43] LABS: CREATININE < 0.2 mg/dL (0.55-1.3); SGOT/AST 14 U/L (15-37); SGPT/ALT 6 U/L (13-61)
[2020-06-23 07:44] LABS: BILIRUBIN,TOTAL 0.7 mg/dL (0.2-1)
[2020-06-23 07:46] LABS: ALK PHOS 152 U/L (45-117)
[2020-06-23] MEDS: SILVER SULFADIAZINE 1% TOP CREAM 50 GM JAR TP SCH (09:09)
[2020-06-23] MEDS: HEPARIN NA (PORCINE) 5,000 UNITS/ML 1ML VIAL SQ SCH ×2 (09:09→21:39)
[2020-06-23] MEDS ORDERED: POTASSIUM PHOSPHATE 30 MM in SODIUM CHLORIDE 250 ML IVPB ONE (12:00)
[2020-06-23] MEDS: NOREPINEPHRINE BITARTRATE 8,000 MCG/500 ML BAG IVPB SCH (14:00)
[2020-06-23] MEDS: CHLORHEXIDINE GLUCONATE 4% CLEANSER FOR DECOLONIZATION TP SCH (21:39)
[2020-06-24 06:44] LABS: HEMOGLOBIN 10.2 GM/dL (10.7-15.3); MCH 30.7 pg (25.7-33.7); MEAN CELL VOLUME 96.1 fl (80-96); MEAN PLT VOLUME 10.4 fl (7.5-11.1); PLATELET COUNT 177 K/MM3 (134-434); RBC 3.33 M/mm3 (3.60-5.2)
[2020-06-24 07:19] LABS: CHLORIDE 111 mmol/L (98-107); POTASSIUM 4.7 mmol/L (3.5-5.1); SODIUM 142 mmol/L (136-145)
[2020-06-24 07:21] LABS: BLOOD UREA NITROGEN 10.3 mg/dL (7-18); CALCIUM 7.5 mg/dL (8.5-10.1)
[2020-06-24 07:22] LABS: ALBUMIN 1.3 g/dl (3.4-5.0); ANION GAP 4 MMOL/L (8-16); CO2 27 mmol/L (21-32); GLUCOSE,RANDOM 89 mg/dL (74-106); MAGNESIUM 1.7 mg/dL (1.8-2.4)
[2020-06-24 07:25] LABS: CREATININE < 0.2 mg/dL (0.55-1.3); PHOSPHOROUS 3.2 mg/dL (2.5-4.9); SGOT/AST 14 U/L (15-37); SGPT/ALT < 6 U/L (13-61)
[2020-06-24 07:27] LABS: BILIRUBIN,TOTAL 0.4 mg/dL (0.2-1); TOT PROT 4.2 g/dl (6.4-8.2)
[2020-06-24 07:28] LABS: ALK PHOS 147 U/L (45-117)
[2020-06-24] MEDS ORDERED: MAGNESIUM 1GM/D5W 100ML - 100 ML IVPB IVPB ONE (08:18)
[2020-06-24] MEDS: HEPARIN NA (PORCINE) 5,000 UNITS/ML 1ML VIAL SQ SCH ×2 (09:13→21:15)
[2020-06-24] MEDS: SILVER SULFADIAZINE 1% TOP CREAM 50 GM JAR TP SCH (09:14)
[2020-06-24] MEDS ORDERED: ALBUMIN HUMAN 25% 100 ML VIAL IVPB ONE (10:40)
[2020-06-24] MEDS ORDERED: FUROSEMIDE 40 MG/4 ML INJECTABLE VIAL IVPUSH ONE (11:45)
[2020-06-24] MEDS: MIDODRINE HCL 5 MG TABLET PO SCH ×2 (12:59→18:48)
[2020-06-24] MEDS: NOREPINEPHRINE BITARTRATE 8,000 MCG/500 ML BAG IVPB SCH (19:35)
[2020-06-24] MEDS: CHLORHEXIDINE GLUCONATE 4% CLEANSER FOR DECOLONIZATION TP SCH (21:20)
[2020-06-25 07:13] LABS: BASO % 1.1 % (0-2.0); EOS % 1.2 % (0-4.5); HEMATOCRIT 28.7 % (32.4-45.2); HEMOGLOBIN 9.1 GM/dL (10.7-15.3); LYMPH % 25.8 % (8-40); MCH 30.7 pg (25.7-33.7); MCHC 31.8 g/dl (32.0-36.0); MEAN CELL VOLUME 96.5 fl (80-96); MEAN PLT VOLUME 10.1 fl (7.5-11.1); MONO % 8.1 % (3.8-10.2); NEUT % 63.8 % (42.8-82.8); PLATELET COUNT 159 K/MM3 (134-434); RBC 2.97 M/mm3 (3.60-5.2); RDW 17.3 % (11.6-15.6); WHITE BLOOD COUNT 6.2 K/mm3 (4.0-10.0)
[2020-06-25 07:26] LABS: CHLORIDE 111 mmol/L (98-107); POTASSIUM 3.9 mmol/L (3.5-5.1); SODIUM 144 mmol/L (136-145)
[2020-06-25 07:36] LABS: ALBUMIN 1.6 g/dl (3.4-5.0); ANION GAP 4 MMOL/L (8-16); CALCIUM 7.6 mg/dL (8.5-10.1); CO2 29 mmol/L (21-32); GLUCOSE,RANDOM 102 mg/dL (74-106)
[2020-06-25 07:37] LABS: MAGNESIUM 1.5 mg/dL (1.8-2.4)
[2020-06-25 07:38] LABS: PHOSPHOROUS 2.4 mg/dL (2.5-4.9); SGOT/AST 12 U/L (15-37); SGPT/ALT < 6 U/L (13-61)
[2020-06-25 07:39] LABS: BILIRUBIN,TOTAL 0.5 mg/dL (0.2-1); TOT PROT 4.2 g/dl (6.4-8.2)
[2020-06-25 07:41] LABS: ALK PHOS 118 U/L (45-117)
[2020-06-25 08:21] LABS: CREATININE < 0.2 mg/dL (0.55-1.3)
[2020-06-25] MEDS ORDERED: POTASSIUM CHLORIDE ORAL LIQUID 20 MEQ/15 ML PO ONE (09:00)
[2020-06-25] MEDS ORDERED: MAGNESIUM 2GM/50ML STERILE WATER IVPB IVPB ONE ×2 (09:00→14:54)
[2020-06-25] MEDS: MIDODRINE HCL 5 MG TABLET PO SCH ×3 (10:02→17:56)
[2020-06-25] MEDS: HEPARIN NA (PORCINE) 5,000 UNITS/ML 1ML VIAL SQ SCH ×2 (10:02→22:12)
[2020-06-25] MEDS: SILVER SULFADIAZINE 1% TOP CREAM 50 GM JAR TP SCH (10:03)
[2020-06-25] MEDS ORDERED: ALBUMIN HUMAN 25% 100 ML VIAL IVPB ONE (14:45)
[2020-06-25] MEDS: BANATROL PLUS POWDER PACKET PO SCH ×2 (15:24→22:12)
[2020-06-25] MEDS: FUROSEMIDE 40 MG/4 ML INJECTABLE VIAL IVPUSH SCH ×2 (17:14→22:11)
[2020-06-25] MEDS: NOREPINEPHRINE BITARTRATE 8,000 MCG/500 ML BAG IVPB SCH (21:25)
[2020-06-25] MEDS ORDERED: PT OWN MED DRAWER 7, Y5N ONE (22:06)
[2020-06-25] MEDS: ACETAMINOPHEN 650 MG/20.3 ML ORAL SOLUTION (CUPS) PO PRN (22:11)
[2020-06-25] MEDS: CHLORHEXIDINE GLUCONATE 4% CLEANSER FOR DECOLONIZATION TP SCH (22:12)
[2020-06-26] MEDS ORDERED: NOREPINEPHRINE BITARTRATE 8,000 MCG/500 ML BAG IVPB ONE (05:10)
[2020-06-26] MEDS ORDERED: NOREPINEPHRINE D5W PREMIX 16,000 MCG/500 ML BAG IVPB SCH (05:15)
[2020-06-26] MEDS: BANATROL PLUS POWDER PACKET PO SCH ×3 (05:28→21:40)
[2020-06-26 06:49] LABS: BASO % 0.5 % (0-2.0); EOS % 0.9 % (0-4.5); HEMATOCRIT 29.9 % (32.4-45.2); HEMOGLOBIN 9.5 GM/dL (10.7-15.3); LYMPH % 15.5 % (8-40); MCH 31.1 pg (25.7-33.7); MCHC 31.9 g/dl (32.0-36.0); MEAN CELL VOLUME 97.5 fl (80-96); MEAN PLT VOLUME 10.1 fl (7.5-11.1); NEUT % 78.1 % (42.8-82.8); PLATELET COUNT 169 K/MM3 (134-434); RBC 3.07 M/mm3 (3.60-5.2); WHITE BLOOD COUNT 10.1 K/mm3 (4.0-10.0)
[2020-06-26 07:13] LABS: CHLORIDE 108 mmol/L (98-107); SODIUM 143 mmol/L (136-145)
[2020-06-26 07:31] LABS: ANION GAP 7 MMOL/L (8-16); BLOOD UREA NITROGEN 9.1 mg/dL (7-18); CALCIUM 7.4 mg/dL (8.5-10.1); CO2 29 mmol/L (21-32); GLUCOSE,RANDOM 114 mg/dL (74-106); MAGNESIUM 1.7 mg/dL (1.8-2.4)
[2020-06-26 07:34] LABS: ALK PHOS 115 U/L (45-117); CREATININE 0.2 mg/dL (0.55-1.3); SGOT/AST 12 U/L (15-37); SGPT/ALT < 6 U/L (13-61)
[2020-06-26 07:35] LABS: BILIRUBIN,TOTAL 0.6 mg/dL (0.2-1); PHOSPHOROUS 2.5 mg/dL (2.5-4.9); TOT PROT 4.6 g/dl (6.4-8.2)
[2020-06-26] MEDS ORDERED: POTASSIUM CHLORIDE ORAL LIQUID 20 MEQ/15 ML PO ONE (07:49)
[2020-06-26] MEDS ORDERED: MAGNESIUM SULF 50% (8.12 MEQ/2 ML-1 GM VIAL) IVPB ONE (07:50)
[2020-06-26] MEDS ORDERED: MAGNESIUM 1GM/D5W - 1 GM/100 ML IVPB IVPB ONE (08:15)
[2020-06-26] MEDS: ACETAMINOPHEN 650 MG/20.3 ML ORAL SOLUTION (CUPS) PO PRN ×2 (09:00→21:38)
[2020-06-26] MEDS: MIDODRINE HCL 5 MG TABLET PO SCH ×3 (09:00→18:10)
[2020-06-26] MEDS: HEPARIN NA (PORCINE) 5,000 UNITS/ML 1ML VIAL SQ SCH ×2 (09:00→21:39)
[2020-06-26] MEDS: SILVER SULFADIAZINE 1% TOP CREAM 50 GM JAR TP SCH (09:00)
[2020-06-26] MEDS: KCL 10 MEQ IVPB 10 MEQ/100 ML INFUS.BAG IVPB SCH ×3 (10:00→14:00)
[2020-06-26] MEDS: FLUDROCORTISONE ACETATE 0.1 MG TABLET (FP) PO SCH (11:38)
[2020-06-26] MEDS ORDERED: ALBUMIN HUMAN 25% 12.5 GM/50 ML VIAL IVPB ONE (12:00)
[2020-06-26] MEDS: CHLORHEXIDINE GLUCONATE 4% CLEANSER FOR DECOLONIZATION TP SCH (21:40)
[2020-06-27] MEDS: MIDODRINE HCL 5 MG TABLET PO SCH ×3 (06:10→22:35)
[2020-06-27] MEDS: BANATROL PLUS POWDER PACKET PO SCH ×3 (06:11→21:20)
[2020-06-27] MEDS ORDERED: VASOPRESSIN 20 UNITS/ML VIAL IV ONE (08:47)
[2020-06-27] MEDS: VASOPRESSIN 40 UNITS in SODIUM CHLORIDE 98 ML IVPB SCH (08:52)
[2020-06-27] MEDS: FLUDROCORTISONE ACETATE 0.1 MG TABLET (FP) PO SCH (09:05)
[2020-06-27] MEDS: SILVER SULFADIAZINE 1% TOP CREAM 50 GM JAR TP SCH (09:05)
[2020-06-27] MEDS: HEPARIN NA (PORCINE) 5,000 UNITS/ML 1ML VIAL SQ SCH ×2 (09:05→21:20)
[2020-06-27 10:41] LABS: BASO % 0.6 % (0-2.0); EOS % 1.5 % (0-4.5); HEMATOCRIT 33.1 % (32.4-45.2); HEMOGLOBIN 10.3 GM/dL (10.7-15.3); LYMPH % 30.7 % (8-40); MCH 31.1 pg (25.7-33.7); MCHC 31.2 g/dl (32.0-36.0); MEAN CELL VOLUME 99.4 fl (80-96); MEAN PLT VOLUME 10.3 fl (7.5-11.1); MONO % 8.9 % (3.8-10.2); NEUT % 58.3 % (42.8-82.8); PLATELET COUNT 152 K/MM3 (134-434); RBC 3.32 M/mm3 (3.60-5.2); RDW 18.2 % (11.6-15.6); WHITE BLOOD COUNT 8.6 K/mm3 (4.0-10.0)
[2020-06-27 10:55] LABS: CHLORIDE 109 mmol/L (98-107); POTASSIUM 4.2 mmol/L (3.5-5.1); SODIUM 141 mmol/L (136-145)
[2020-06-27 11:08] LABS: ALBUMIN 1.8 g/dl (3.4-5.0); CALCIUM 7.5 mg/dL (8.5-10.1)
[2020-06-27 11:09] LABS: ANION GAP 6 MMOL/L (8-16); BLOOD UREA NITROGEN 14.4 mg/dL (7-18); CO2 26 mmol/L (21-32); GLUCOSE,RANDOM 121 mg/dL (74-106); MAGNESIUM 1.9 mg/dL (1.8-2.4)
[2020-06-27 11:11] LABS: SGOT/AST 10 U/L (15-37); SGPT/ALT < 6 U/L (13-61)
[2020-06-27 11:12] LABS: CREATININE 0.2 mg/dL (0.55-1.3); PHOSPHOROUS 2.4 mg/dL (2.5-4.9)
[2020-06-27 11:13] LABS: BILIRUBIN,TOTAL 0.4 mg/dL (0.2-1); TOT PROT 4.7 g/dl (6.4-8.2)
[2020-06-27 11:14] LABS: ALK PHOS 117 U/L (45-117)
[2020-06-27] MEDS: CHLORHEXIDINE GLUCONATE 4% CLEANSER FOR DECOLONIZATION TP SCH (21:20)
[2020-06-28] MEDS: MIDODRINE HCL 5 MG TABLET PO SCH ×3 (06:08→22:00)
[2020-06-28] MEDS: BANATROL PLUS POWDER PACKET PO SCH ×3 (06:09→22:00)
[2020-06-28 07:49] LABS: BASO % 0.8 % (0-2.0); EOS % 2.6 % (0-4.5); HEMATOCRIT 29.4 % (32.4-45.2); HEMOGLOBIN 9.3 GM/dL (10.7-15.3); LYMPH % 40.7 % (8-40); MCH 31.4 pg (25.7-33.7); MCHC 31.5 g/dl (32.0-36.0); MEAN CELL VOLUME 99.6 fl (80-96); MEAN PLT VOLUME 10.8 fl (7.5-11.1); MONO % 6.9 % (3.8-10.2); PLATELET COUNT 142 K/MM3 (134-434); RBC 2.95 M/mm3 (3.60-5.2); RDW 17.9 % (11.6-15.6); WHITE BLOOD COUNT 4.9 K/mm3 (4.0-10.0)
[2020-06-28 07:50] LABS: CHLORIDE 107 mmol/L (98-107); POTASSIUM 4.5 mmol/L (3.5-5.1); SODIUM 140 mmol/L (136-145)
[2020-06-28 07:52] LABS: CALCIUM 7.4 mg/dL (8.5-10.1)
[2020-06-28 07:53] LABS: ALBUMIN 1.8 g/dl (3.4-5.0); BLOOD UREA NITROGEN 16.2 mg/dL (7-18); MAGNESIUM 1.8 mg/dL (1.8-2.4)
[2020-06-28 07:54] LABS: ANION GAP 6 MMOL/L (8-16); CO2 27 mmol/L (21-32); GLUCOSE,RANDOM 117 mg/dL (74-106)
[2020-06-28 07:55] LABS: PHOSPHOROUS 3.1 mg/dL (2.5-4.9)
[2020-06-28 07:56] LABS: CREATININE 0.2 mg/dL (0.55-1.3); SGOT/AST 8 U/L (15-37)
[2020-06-28 07:57] LABS: BILIRUBIN,TOTAL 0.3 mg/dL (0.2-1); TOT PROT 4.7 g/dl (6.4-8.2)
[2020-06-28 07:58] LABS: ALK PHOS 115 U/L (45-117)
[2020-06-28 08:34] LABS: SGPT/ALT < 6 U/L (13-61)
[2020-06-28] MEDS: FLUDROCORTISONE ACETATE 0.1 MG TABLET (FP) PO SCH (09:16)
[2020-06-28] MEDS: HEPARIN NA (PORCINE) 5,000 UNITS/ML 1ML VIAL SQ SCH (09:16)
[2020-06-28] MEDS: SILVER SULFADIAZINE 1% TOP CREAM 50 GM JAR TP SCH (09:16)
[2020-06-28] MEDS ORDERED: FUROSEMIDE 40 MG/5 ML UNIT-DOSE CUP PO ONE (13:38)
[2020-06-28] MEDS ORDERED: PT OWN MED DRAWER 7, Y5N ONE (15:25)
[2020-06-28] MEDS: VASOPRESSIN 40 UNITS in SODIUM CHLORIDE 98 ML IVPB SCH (15:50)
[2020-06-28] MEDS ORDERED: ALBUMIN HUMAN 25% 100 ML VIAL IVPB ONE (15:56)
[2020-06-28] MEDS: ALBUMIN HUMAN 25% 100 ML VIAL IVPB SCH (16:21)
[2020-06-29] MEDS ORDERED: PT OWN MED DRAWER 7, Y5N ONE (02:08)
[2020-06-29] MEDS: HEPARIN NA (PORCINE) 5,000 UNITS/ML 1ML VIAL SQ SCH ×3 (03:09→22:21)
[2020-06-29] MEDS: CHLORHEXIDINE GLUCONATE 4% CLEANSER FOR DECOLONIZATION TP SCH ×2 (03:09→22:21)
[2020-06-29] MEDS: BANATROL PLUS POWDER PACKET PO SCH ×3 (06:52→22:20)
[2020-06-29] MEDS: MIDODRINE HCL 5 MG TABLET PO SCH ×3 (06:52→22:20)
[2020-06-29 07:13] LABS: BASO % 0.8 % (0-2.0); EOS % 2.7 % (0-4.5); HEMATOCRIT 24.6 % (32.4-45.2); HEMOGLOBIN 7.9 GM/dL (10.7-15.3); LYMPH % 34.9 % (8-40); MCH 31.6 pg (25.7-33.7); MCHC 32.2 g/dl (32.0-36.0); MEAN CELL VOLUME 98.1 fl (80-96); MEAN PLT VOLUME 10.1 fl (7.5-11.1); MONO % 7.2 % (3.8-10.2); NEUT % 54.4 % (42.8-82.8); PLATELET COUNT 147 K/MM3 (134-434); RBC 2.51 M/mm3 (3.60-5.2); RDW 17.3 % (11.6-15.6); WHITE BLOOD COUNT 5.3 K/mm3 (4.0-10.0)
[2020-06-29 07:28] LABS: CHLORIDE 105 mmol/L (98-107); SODIUM 142 mmol/L (136-145)
[2020-06-29 07:35] LABS: CALCIUM 7.4 mg/dL (8.5-10.1)
[2020-06-29 07:36] LABS: ALBUMIN 2.1 g/dl (3.4-5.0); BLOOD UREA NITROGEN 12.3 mg/dL (7-18); CO2 32 mmol/L (21-32); GLUCOSE,RANDOM 101 mg/dL (74-106); MAGNESIUM 1.5 mg/dL (1.8-2.4)
[2020-06-29 07:39] LABS: CREATININE < 0.2 mg/dL (0.55-1.3); PHOSPHOROUS 2.8 mg/dL (2.5-4.9); SGOT/AST 9 U/L (15-37); SGPT/ALT 6 U/L (13-61)
[2020-06-29 07:40] LABS: BILIRUBIN,TOTAL 0.3 mg/dL (0.2-1)
[2020-06-29 07:41] LABS: TOT PROT 4.8 g/dl (6.4-8.2)
[2020-06-29 07:42] LABS: ALK PHOS 128 U/L (45-117)
[2020-06-29 07:46] LABS: ANION GAP 6 MMOL/L (8-16)
[2020-06-29 07:49] LABS: POTASSIUM 2.6 mmol/L (3.5-5.1)
[2020-06-29] MEDS ORDERED: MAGNESIUM SULFATE IN WATER 2 GM/50 ML IVPB IVPB ONE (09:00)
[2020-06-29] MEDS: KCL 10 MEQ IVPB 10 MEQ/100 ML INFUS.BAG IVPB SCH ×6 (09:34→22:15)
[2020-06-29] MEDS: FLUDROCORTISONE ACETATE 0.1 MG TABLET (FP) PO SCH (09:44)
[2020-06-29] MEDS: SILVER SULFADIAZINE 1% TOP CREAM 50 GM JAR TP SCH (09:45)
[2020-06-29 18:27] LABS: CHLORIDE 105 mmol/L (98-107); POTASSIUM 3.1 mmol/L (3.5-5.1); SODIUM 140 mmol/L (136-145)
[2020-06-29 18:29] LABS: ANION GAP 5 MMOL/L (8-16); BLOOD UREA NITROGEN 12.2 mg/dL (7-18); CALCIUM 7.6 mg/dL (8.5-10.1); CO2 30 mmol/L (21-32); GLUCOSE,RANDOM 91 mg/dL (74-106)
[2020-06-29 18:38] LABS: CREATININE < 0.2 mg/dL (0.55-1.3)
[2020-06-29] MEDS: VASOPRESSIN 40 UNITS in SODIUM CHLORIDE 98 ML IVPB SCH (19:49)
[2020-06-30] MEDS: BANATROL PLUS POWDER PACKET PO SCH ×3 (05:18→21:29)
[2020-06-30] MEDS: MIDODRINE HCL 5 MG TABLET PO SCH ×3 (05:18→21:30)
[2020-06-30 07:12] LABS: BASO % 0.6 % (0-2.0); HEMATOCRIT 27.2 % (32.4-45.2); HEMOGLOBIN 8.7 GM/dL (10.7-15.3); LYMPH % 25.2 % (8-40); MCH 31.7 pg (25.7-33.7); MONO % 7.2 % (3.8-10.2); PLATELET COUNT 156 K/MM3 (134-434); RBC 2.75 M/mm3 (3.60-5.2); RDW 17.4 % (11.6-15.6); WHITE BLOOD COUNT 6.7 K/mm3 (4.0-10.0)
[2020-06-30 07:33] LABS: POTASSIUM 3.6 mmol/L (3.5-5.1)
[2020-06-30 07:40] LABS: CALCIUM 7.3 mg/dL (8.5-10.1)
[2020-06-30 07:41] LABS: BLOOD UREA NITROGEN 11.8 mg/dL (7-18); MAGNESIUM 1.8 mg/dL (1.8-2.4)
[2020-06-30 07:44] LABS: CREATININE 0.2 mg/dL (0.55-1.3); PHOSPHOROUS 2.7 mg/dL (2.5-4.9)
[2020-06-30 07:45] LABS: BILIRUBIN,TOTAL 0.3 mg/dL (0.2-1); TOT PROT 4.8 g/dl (6.4-8.2)
[2020-06-30] MEDS: FLUDROCORTISONE ACETATE 0.1 MG TABLET (FP) PO SCH (11:45)
[2020-06-30] MEDS: SILVER SULFADIAZINE 1% TOP CREAM 50 GM JAR TP SCH (11:45)
[2020-06-30] MEDS: HEPARIN NA (PORCINE) 5,000 UNITS/ML 1ML VIAL SQ SCH ×2 (11:45→21:29)
[2020-06-30] MEDS ORDERED: VASOPRESSIN 20 UNITS/ML VIAL IV ONE (12:18)
[2020-06-30] MEDS: VASOPRESSIN 40 UNITS in SODIUM CHLORIDE 98 ML IVPB SCH (13:48)
[2020-06-30] MEDS ORDERED: MIDODRINE HCL 5 MG TABLET PO SCH ×2 (15:30→22:00)
[2020-06-30] MEDS ORDERED: PT OWN MED DRAWER 7, Y5N ONE (20:38)
[2020-06-30] MEDS: CHLORHEXIDINE GLUCONATE 4% CLEANSER FOR DECOLONIZATION TP SCH (21:30)
[2020-07-01] MEDS: MIDODRINE HCL 5 MG TABLET PO SCH ×4 (05:25→23:31)
[2020-07-01] MEDS: BANATROL PLUS POWDER PACKET PO SCH ×4 (05:25→23:28)
[2020-07-01 07:40] LABS: BASO % 0.6 % (0-2.0); EOS % 3.6 % (0-4.5); HEMATOCRIT 29.3 % (32.4-45.2); HEMOGLOBIN 9.3 GM/dL (10.7-15.3); LYMPH % 27.4 % (8-40); MCH 31.2 pg (25.7-33.7); MCHC 31.7 g/dl (32.0-36.0); MEAN CELL VOLUME 98.6 fl (80-96); MONO % 6.9 % (3.8-10.2); NEUT % 61.5 % (42.8-82.8); PLATELET COUNT 177 K/MM3 (134-434); RBC 2.97 M/mm3 (3.60-5.2); RDW 17.4 % (11.6-15.6); WHITE BLOOD COUNT 8.4 K/mm3 (4.0-10.0)
[2020-07-01 07:52] LABS: CHLORIDE 101 mmol/L (98-107); POTASSIUM 3.5 mmol/L (3.5-5.1); SODIUM 137 mmol/L (136-145)
[2020-07-01 07:54] LABS: ALBUMIN 1.9 g/dl (3.4-5.0); CALCIUM 7.7 mg/dL (8.5-10.1)
[2020-07-01 07:55] LABS: ANION GAP 5 MMOL/L (8-16); BLOOD UREA NITROGEN 13.3 mg/dL (7-18); CO2 31 mmol/L (21-32); GLUCOSE,RANDOM 89 mg/dL (74-106); MAGNESIUM 1.7 mg/dL (1.8-2.4)
[2020-07-01 07:58] LABS: CREATININE < 0.2 mg/dL (0.55-1.3); PHOSPHOROUS 2.9 mg/dL (2.5-4.9); SGOT/AST 12 U/L (15-37); SGPT/ALT 6 U/L (13-61)
[2020-07-01 07:59] LABS: BILIRUBIN,TOTAL 0.3 mg/dL (0.2-1); TOT PROT 4.9 g/dl (6.4-8.2)
[2020-07-01 08:01] LABS: ALK PHOS 152 U/L (45-117)
[2020-07-01] MEDS ORDERED: MAGNESIUM SULF 50% (8.12 MEQ/2 ML-1 GM VIAL) IVPB ONE (08:30)
[2020-07-01] MEDS ORDERED: MAGNESIUM 1GM/D5W - 1 GM/100 ML IVPB IVPB ONE (08:45)
[2020-07-01] MEDS: VASOPRESSIN 40 UNITS in SODIUM CHLORIDE 98 ML IVPB SCH (09:33)
[2020-07-01] MEDS: FLUDROCORTISONE ACETATE 0.1 MG TABLET (FP) PO SCH (09:33)
[2020-07-01] MEDS: HEPARIN NA (PORCINE) 5,000 UNITS/ML 1ML VIAL SQ SCH (09:33)
[2020-07-01] MEDS: SILVER SULFADIAZINE 1% TOP CREAM 50 GM JAR TP SCH (09:39)
[2020-07-01 14:47] VITALS: BMI 53.7
[2020-07-01] MEDS: AMINO ACIDS/PROTEIN HYDROLYS 30 ML LIQUID.PKT PO SCH (16:34)
[2020-07-01] MEDS: CHLORHEXIDINE GLUCONATE 4% CLEANSER FOR DECOLONIZATION TP SCH (22:06)
[2020-07-02] MEDS ORDERED: ACETAMINOPHEN 650 MG/20.3 ML ORAL SOLUTION (CUPS) PO PRN (01:54)
[2020-07-02 04:07] LABS: HIV INTERPRETATION NEGATIVE (NEGATIVE)
[2020-07-02] MEDS: BANATROL PLUS POWDER PACKET PO SCH ×3 (06:12→21:52)
[2020-07-02] MEDS: MIDODRINE HCL 5 MG TABLET PO SCH ×3 (06:12→21:52)
[2020-07-02 08:59] LABS: BASO % 0.4 % (0-2.0); EOS % 2.2 % (0-4.5); HEMOGLOBIN 9.1 GM/dL (10.7-15.3); LYMPH % 40.5 % (8-40); MCHC 32.4 g/dl (32.0-36.0); MEAN CELL VOLUME 98.7 fl (80-96); MEAN PLT VOLUME 9.8 fl (7.5-11.1); MONO % 14.3 % (3.8-10.2); NEUT % 42.6 % (42.8-82.8); PLATELET COUNT 186 K/MM3 (134-434); RBC 2.84 M/mm3 (3.60-5.2); WHITE BLOOD COUNT 5.8 K/mm3 (4.0-10.0)
[2020-07-02 09:13] LABS: POTASSIUM 3.5 mmol/L (3.5-5.1)
[2020-07-02 09:14] LABS: CALCIUM 7.6 mg/dL (8.5-10.1)
[2020-07-02 09:15] LABS: ALBUMIN 1.6 g/dl (3.4-5.0)
[2020-07-02 09:17] LABS: CREATININE 0.3 mg/dL (0.55-1.3)
[2020-07-02 09:20] LABS: BILIRUBIN,TOTAL 0.4 mg/dL (0.2-1); TOT PROT 4.7 g/dl (6.4-8.2)
[2020-07-02 10:24] LABS: ANISOCYTOSIS 2+; MACROCYTOSIS 1+; PLATELET ESTIMATE NORMAL
[2020-07-02] MEDS: AMINO ACIDS/PROTEIN HYDROLYS 30 ML LIQUID.PKT PO SCH ×2 (17:03→17:10)
[2020-07-02] MEDS: SILVER SULFADIAZINE 1% TOP CREAM 50 GM JAR TP SCH (17:04)
[2020-07-02] MEDS: FLUDROCORTISONE ACETATE 0.1 MG TABLET (FP) PO SCH (17:09)
[2020-07-02] MEDS: POTASSIUM CHLORIDE ORAL LIQUID 20 MEQ/15 ML NGT SCH (17:10)
[2020-07-02] MEDS: VANCOMYCIN 250 MG/5 ML ORAL SOLUTION PO SCH ×2 (17:27→23:01)
[2020-07-02] MEDS ORDERED: PT OWN MED DRAWER 7, Y5N ONE ×2 (19:36→21:02)
[2020-07-02] MEDS: FAMOTIDINE 20 MG/50 ML IVPB 20 MG/50 ML MG IVPB SCH (21:52)
[2020-07-02] MEDS ORDERED: CHLORHEXIDINE GLUCONATE 4% CLEANSER FOR DECOLONIZATION TP SCH (22:00)
[2020-07-03] MEDS ORDERED: PT OWN MED DRAWER 7, Y5N ONE (05:31)
[2020-07-03] MEDS: BANATROL PLUS POWDER PACKET PO SCH ×3 (06:21→21:58)
[2020-07-03] MEDS: MIDODRINE HCL 5 MG TABLET PO SCH ×3 (06:21→21:58)
[2020-07-03] MEDS: VANCOMYCIN 250 MG/5 ML ORAL SOLUTION PO SCH ×3 (06:21→18:07)
[2020-07-03] MEDS: AMINO ACIDS/PROTEIN HYDROLYS 30 ML LIQUID.PKT PO SCH ×2 (10:56→18:07)
[2020-07-03] MEDS: FAMOTIDINE 20 MG/50 ML IVPB 20 MG/50 ML MG IVPB SCH ×2 (11:06→21:57)
[2020-07-03] MEDS: FLUDROCORTISONE ACETATE 0.1 MG TABLET (FP) PO SCH (11:06)
[2020-07-03] MEDS: POTASSIUM CHLORIDE ORAL LIQUID 20 MEQ/15 ML NGT SCH (11:06)
[2020-07-03 12:07] LABS: BASO % 0.4 % (0-2.0); EOS % 0.8 % (0-4.5); HEMATOCRIT 30.5 % (32.4-45.2); HEMOGLOBIN 9.6 GM/dL (10.7-15.3); LYMPH % 29.3 % (8-40); MCH 31.3 pg (25.7-33.7); MCHC 31.5 g/dl (32.0-36.0); MEAN CELL VOLUME 99.5 fl (80-96); MEAN PLT VOLUME 10.7 fl (7.5-11.1); NEUT % 60.5 % (42.8-82.8); PLATELET COUNT 152 K/MM3 (134-434); RBC 3.07 M/mm3 (3.60-5.2); RDW 17.8 % (11.6-15.6); WHITE BLOOD COUNT 8.3 K/mm3 (4.0-10.0)
[2020-07-03 12:10] LABS: CHLORIDE 102 mmol/L (98-107); POTASSIUM 4.1 mmol/L (3.5-5.1); SODIUM 136 mmol/L (136-145)
[2020-07-03 12:13] LABS: ALBUMIN 1.7 g/dl (3.4-5.0); ANION GAP 8 MMOL/L (8-16); BLOOD UREA NITROGEN 24.8 mg/dL (7-18); CALCIUM 7.7 mg/dL (8.5-10.1); CO2 26 mmol/L (21-32); GLUCOSE,RANDOM 85 mg/dL (74-106)
[2020-07-03 12:16] LABS: CREATININE 0.4 mg/dL (0.55-1.3); SGOT/AST 9 U/L (15-37); SGPT/ALT < 6 U/L (13-61)
[2020-07-03 12:18] LABS: BILIRUBIN,TOTAL 0.9 mg/dL (0.2-1); TOT PROT 4.9 g/dl (6.4-8.2)
[2020-07-03 12:19] LABS: ALK PHOS 147 U/L (45-117)
[2020-07-03] MEDS ORDERED: ALBUMIN HUMAN 25% 100 ML VIAL IVPB ONE (12:25)
[2020-07-03] MEDS ORDERED: FUROSEMIDE 40 MG TABLET (FP) PO ONE (12:30)
[2020-07-03] MEDS: SILVER SULFADIAZINE 1% TOP CREAM 50 GM JAR TP SCH (14:16)
[2020-07-03 23:10] LABS: HEP B CORE AB, TOT Negative (Negative)
[2020-07-04] MEDS: VANCOMYCIN 250 MG/5 ML ORAL SOLUTION PO SCH ×3 (00:31→11:21)
[2020-07-04] MEDS: MIDODRINE HCL 5 MG TABLET PO SCH (05:09)
[2020-07-04] MEDS: BANATROL PLUS POWDER PACKET PO SCH ×2 (05:09→13:42)
[2020-07-04 08:18] LABS: BASO % 0.3 % (0-2.0); EOS % 3.3 % (0-4.5); HEMATOCRIT 28.2 % (32.4-45.2); HEMOGLOBIN 8.8 GM/dL (10.7-15.3); LYMPH % 32.1 % (8-40); MCH 31.3 pg (25.7-33.7); MCHC 31.2 g/dl (32.0-36.0); MEAN CELL VOLUME 100.2 fl (80-96); MEAN PLT VOLUME 9.9 fl (7.5-11.1); MONO % 7.4 % (3.8-10.2); NEUT % 56.9 % (42.8-82.8); PLATELET COUNT 241 K/MM3 (134-434); RBC 2.82 M/mm3 (3.60-5.2)
[2020-07-04 09:04] LABS: POTASSIUM 3.2 mmol/L (3.5-5.1)
[2020-07-04 09:12] LABS: BLOOD UREA NITROGEN 29.2 mg/dL (7-18); CALCIUM 7.2 mg/dL (8.5-10.1)
[2020-07-04 09:15] LABS: CREATININE 0.4 mg/dL (0.55-1.3)
[2020-07-04 09:16] LABS: BILIRUBIN,TOTAL 0.6 mg/dL (0.2-1)
[2020-07-04] MEDS: FAMOTIDINE 20 MG/50 ML IVPB 20 MG/50 ML MG IVPB SCH (09:49)
[2020-07-04] MEDS: SILVER SULFADIAZINE 1% TOP CREAM 50 GM JAR TP SCH (09:49)
[2020-07-04] MEDS: POTASSIUM CHLORIDE ORAL LIQUID 20 MEQ/15 ML NGT SCH (09:49)
[2020-07-04] MEDS: AMINO ACIDS/PROTEIN HYDROLYS 30 ML LIQUID.PKT PO SCH (09:49)
[2020-07-04] MEDS: FLUDROCORTISONE ACETATE 0.1 MG TABLET (FP) PO SCH (09:49)
[2020-07-04] MEDS ORDERED: MIDODRINE HCL 5 MG TABLET PO SCH (11:25)
[2020-07-04 13:40] VITALS: BP 104/62; PULSE 75; TEMP 98
[2020-07-04] MEDS ORDERED: POTASSIUM CHLORIDE ORAL LIQUID 20 MEQ/15 ML PO ONE (14:00)
== END 2020-07-04 14:10 | DRG 870 ==
LOC: JER 18:02 → JERBED 20:13 → JICU 06-14 02:30 → J5S 07-02 01:00
PROVIDERS: ADMIT Family Medicine; ATTEND Family Medicine
PROC: 05HN33Z Insertion of Infusion Device into Left Internal Jugular Vein, Percutaneous Approach (ICD-10-PCS; principal; 2020-06-13)
PROC: 5A1955Z Respiratory Ventilation, Greater than 96 Consecutive Hours (ICD-10-PCS; 2020-06-13)
PROC: 05HM33Z Insertion of Infusion Device into Right Internal Jugular Vein, Percutaneous Approach (ICD-10-PCS; 2020-06-22)
PROC: 05HN33Z Insertion of Infusion Device into Left Internal Jugular Vein, Percutaneous Approach (ICD-10-PCS; 2020-06-27)
PROC: B544ZZA Ultrasonography of Left Jugular Veins, Guidance (ICD-10-PCS; 2020-06-27)
PROC: B543ZZA Ultrasonography of Right Jugular Veins, Guidance (ICD-10-PCS; 2020-06-27)
PROC: 0DH673Z Insertion of Infusion Device into Stomach, Via Natural or Artificial Opening (ICD-10-PCS; 2020-07-02)
DX: A41.89 Other specified sepsis (principal); E11.10 Type 2 diabetes mellitus with ketoacidosis without coma; R65.21 Severe sepsis with septic shock; J96.10 Chronic respiratory failure, unspecified whether with hypoxia or hypercapnia; E87.0 Hyperosmolality and hypernatremia; E46 Unspecified protein-calorie malnutrition; A04.72 Enterocolitis due to Clostridium difficile, not specified as recurrent; N39.0 Urinary tract infection, site not specified; N17.9 Acute kidney failure, unspecified; M48.55XA Collapsed vertebra, not elsewhere classified, thoracolumbar region, initial encounter for fracture; J98.11 Atelectasis; Z16.12 Extended spectrum beta lactamase (ESBL) resistance; K62.5 Hemorrhage of anus and rectum; G30.9 Alzheimer's disease, unspecified; I48.91 Unspecified atrial fibrillation; I50.9 Heart failure, unspecified; I95.9 Hypotension, unspecified; D72.829 Elevated white blood cell count, unspecified; E11.9 Type 2 diabetes mellitus without complications; E87.5 Hyperkalemia; I77.819 Aortic ectasia, unspecified site; I25.10 Atherosclerotic heart disease of native coronary artery without angina pectoris; J44.9 Chronic obstructive pulmonary disease, unspecified; F02.80 Dementia in other diseases classified elsewhere, unspecified severity, without behavioral disturbance, psychotic disturbance, mood disturbance, and anxiety; L89.322 Pressure ulcer of left buttock, stage 2; L89.312 Pressure ulcer of right buttock, stage 2; K76.89 Other specified diseases of liver; K21.9 Gastro-esophageal reflux disease without esophagitis; I25.2 Old myocardial infarction; R59.0 Localized enlarged lymph nodes; E88.09 Other disorders of plasma-protein metabolism, not elsewhere classified; B96.20 Unspecified Escherichia coli [E. coli] as the cause of diseases classified elsewhere; R19.7 Diarrhea, unspecified; N20.0 Calculus of kidney; K80.20 Calculus of gallbladder without cholecystitis without obstruction; E66.9 Obesity, unspecified; Z68.33 Body mass index [BMI] 33.0-33.9, adult; D64.9 Anemia, unspecified; Z90.12 Acquired absence of left breast and nipple; Z93.1 Gastrostomy status; Z93.0 Tracheostomy status; Z86.718 Personal history of other venous thrombosis and embolism
CPT/HCPCS: 36415; 49450; 70450-TC; 71045-TC-FY; 71250-TC; 74018-TC-FY; 74176-TC; 80048; 80053; 81003; 82803; 82962; 83036; 83605; 83735; 84100; 84439; 84443; 84484; 85025; 85027; 85610; 85730; 86704; 86706; 86707; 86708; 86709; 86803; 87040; 87045; 87046; 87070; 87077; 87086; 87186; 87205; 87324; 87340; 87389; 87449; 93005; 93010; 94002; 99285-25; C9803; J0131; J1644; P9047; U0003

== ENCOUNTER 2020-12-25 18:35 | Inpatient (IN) | payer OTHER, MEDICARE ==
[2020-12-25 20:52] LABS: BASO % 0.4 % (0-2.0); EOS % 2.1 % (0-4.5); HEMATOCRIT 35.1 % (32.4-45.2); HEMOGLOBIN 11.2 GM/dL (10.7-15.3); LYMPH % 21.8 % (8-40); MCH 27.7 pg (25.7-33.7); MCHC 31.9 g/dl (32.0-36.0); MEAN CELL VOLUME 86.8 fl (80-96); MEAN PLT VOLUME 11.1 fl (7.5-11.1); MONO % 6.4 % (3.8-10.2); NEUT % 69.3 % (42.8-82.8); PLATELET COUNT 203 K/MM3 (134-434); RBC 4.04 M/mm3 (3.60-5.2); RDW 18.8 % (11.6-15.6); WHITE BLOOD COUNT 9.5 K/mm3 (4.0-10.0)
[2020-12-25 21:00] LABS: INR 1.12 (0.83-1.09); PROTHROMBIN TIME (PATIENT) 13.7 SEC (9.7-13.0)
[2020-12-25 21:02] LABS: ACTIVATED PTT 31.6 SECONDS (25.2-36.5)
[2020-12-25 21:09] LABS: CHLORIDE 99 mmol/L (98-107); SODIUM 141 mmol/L (136-145)
[2020-12-25 21:10] LABS: MAGNESIUM 2.1 mg/dL (1.8-2.4)
[2020-12-25 21:11] LABS: CALCIUM 8.3 mg/dL (8.5-10.1)
[2020-12-25 21:12] LABS: ANION GAP 4 MMOL/L (8-16); BLOOD UREA NITROGEN 15.6 mg/dL (7-18); CO2 38 mmol/L (21-32); GLUCOSE,RANDOM 81 mg/dL (74-106)
[2020-12-25 21:13] LABS: PHOSPHOROUS 3.6 mg/dL (2.5-4.9)
[2020-12-25 21:15] LABS: CREATININE 0.3 mg/dL (0.55-1.3); SGOT/AST 78 U/L (15-37); SGPT/ALT 21 U/L (13-61)
[2020-12-25 21:16] LABS: BILIRUBIN,TOTAL 0.5 mg/dL (0.2-1)
[2020-12-25 21:17] LABS: TOT PROT 8.3 g/dl (6.4-8.2)
[2020-12-25 21:18] LABS: ALK PHOS 200 U/L (45-117)
[2020-12-25 21:20] LABS: N-TERMINAL BNP 421.2 pg/ml (5-450)
[2020-12-25] MEDS ORDERED: VANCOMYCIN 1,000 MG in DEXTROSE 5%-WATER - 250 ML IVPB ONE (22:39)
[2020-12-25] MEDS ORDERED: PIPERACILLIN/TAZOB 4.5 GM 4.5 GM in DEXTROSE 5%-WATER 100 ML IVPB ONE (22:39)
[2020-12-25] MEDS ORDERED: VANCOMYCIN 1 GRAM (PRE-DOCKED) 1,000 MG/250 ML BAG IVPB ONE (22:54)
[2020-12-25] MEDS ORDERED: PIPERACILLIN/TAZOB 3.375 GM 3.375 GM/50 ML BAG IVPB ONE (23:26)
[2020-12-25] MEDS ORDERED: PIPERACILLIN/TAZOB 4.5 GM 4.5 GM/100 ML BAG IVPB ONE (23:29)
[2020-12-26 05:26] VITALS: BMI 34.2
[2020-12-26 08:31] LABS: CALCIUM 8.3 mg/dL (8.5-10.1)
[2020-12-26 08:32] LABS: ALBUMIN 2.8 g/dl (3.4-5.0); BLOOD UREA NITROGEN 16.4 mg/dL (7-18)
[2020-12-26 08:35] LABS: CREATININE 0.4 mg/dL (0.55-1.3)
[2020-12-26 08:36] LABS: BILIRUBIN,TOTAL 0.5 mg/dL (0.2-1); TOT PROT 7.2 g/dl (6.4-8.2)
[2020-12-26 10:54] LABS: BASO % 0.4 % (0-2.0); EOS % 0.7 % (0-4.5); HEMATOCRIT 34.6 % (32.4-45.2); HEMOGLOBIN 11.1 GM/dL (10.7-15.3); MCH 27.9 pg (25.7-33.7); MCHC 32.1 g/dl (32.0-36.0); MEAN CELL VOLUME 86.9 fl (80-96); MEAN PLT VOLUME 11.2 fl (7.5-11.1); MONO % 6.6 % (3.8-10.2); NEUT % 76.3 % (42.8-82.8); PLATELET COUNT 186 K/MM3 (134-434); RBC 3.98 M/mm3 (3.60-5.2); RDW 18.7 % (11.6-15.6); WHITE BLOOD COUNT 9.7 K/mm3 (4.0-10.0)
[2020-12-26] MEDS: HEPARIN NA (PORCINE) 5,000 UNITS/ML 1ML VIAL SQ SCH ×2 (11:05→21:56)
[2020-12-26 16:42] LABS: BF WBC & OTHER NUCLEATED CELLS 622 /mm3
[2020-12-26] MEDS: ARTIFICIAL TEARS (POLYVINYL ALCOHOL) OPTH DROPS OU SCH ×2 (16:55→21:54)
[2020-12-26] MEDS: FUROSEMIDE 40 MG/5 ML UNIT-DOSE CUP GT SCH (16:56)
[2020-12-26 17:26] LABS: BODY FLUID MACROPHAGES 2 %; BODY FLUID MONOCYTE 20 %
[2020-12-26] MEDS ORDERED: PT OWN MED DRAWER 7, Y5N ONE ×2 (17:56→21:36)
[2020-12-26] MEDS: AMOX TR/POTASSIUM CLAVULANATE 600 MG/5 ML PO SCH (18:14)
[2020-12-26] MEDS: NYSTATIN POWDER 100,000 UNITS/GM - 15 GM TOPICAL POWDER TP SCH (21:56)
[2020-12-26] MEDS: MIDODRINE HCL 5 MG TABLET GT SCH (21:56)
[2020-12-26] MEDS: SENNOSIDES 8.8 MG/5 ML BULK BOTTLE GT SCH (22:01)
[2020-12-27] MEDS: ARTIFICIAL TEARS (POLYVINYL ALCOHOL) OPTH DROPS OU SCH ×4 (02:41→23:07)
[2020-12-27] MEDS: MIDODRINE HCL 5 MG TABLET GT SCH ×3 (05:15→23:12)
[2020-12-27 08:34] LABS: INR 1.18 (0.83-1.09); PROTHROMBIN TIME (PATIENT) 14.5 SEC (9.7-13.0)
[2020-12-27 09:04] LABS: BILIRUBIN,TOTAL 0.4 mg/dL (0.2-1); TOT PROT 7.4 g/dl (6.4-8.2)
[2020-12-27 09:05] LABS: CREATININE 0.4 mg/dL (0.55-1.3)
[2020-12-27 09:06] LABS: ALBUMIN 2.9 g/dl (3.4-5.0); BLOOD UREA NITROGEN 18.6 mg/dL (7-18)
[2020-12-27 09:07] LABS: CALCIUM 8.4 mg/dL (8.5-10.1)
[2020-12-27] MEDS ORDERED: PT OWN MED DRAWER 7, Y5N ONE (09:18)
[2020-12-27] MEDS: NYSTATIN POWDER 100,000 UNITS/GM - 15 GM TOPICAL POWDER TP SCH ×2 (09:30→23:10)
[2020-12-27] MEDS: AMOX TR/POTASSIUM CLAVULANATE 600 MG/5 ML PO SCH ×2 (09:31→17:59)
[2020-12-27] MEDS: POTASSIUM CHLORIDE ORAL LIQUID 20 MEQ/15 ML GT SCH (09:31)
[2020-12-27] MEDS: FUROSEMIDE 40 MG/5 ML UNIT-DOSE CUP GT SCH (09:32)
[2020-12-27] MEDS: HEPARIN NA (PORCINE) 5,000 UNITS/ML 1ML VIAL SQ SCH ×2 (09:32→23:10)
[2020-12-27] MEDS: FLUDROCORTISONE ACETATE 0.1 MG TABLET (FP) GT SCH (09:32)
[2020-12-27] MEDS: amLODIPine BESYLATE 10 MG TABLET (FP) GT SCH (09:32)
[2020-12-27] MEDS ORDERED: NYSTATIN POWDER 100,000 UNITS/GM - 15 GM TOPICAL POWDER TP SCH (10:00)
[2020-12-27] MEDS: CLOTRIMAZOLE/BETAMET DIPROP 15 GM TUBE TP SCH (23:10)
[2020-12-27] MEDS: SPIRONOLACTONE 25 MG TABLET PO SCH (23:10)
[2020-12-27] MEDS: METOCLOPRAMIDE HCL 10 MG/10 ML UNIT DOSE CUP PO SCH (23:12)
[2020-12-27] MEDS: SENNOSIDES 8.8 MG/5 ML BULK BOTTLE GT SCH (23:13)
[2020-12-28] MEDS: ARTIFICIAL TEARS (POLYVINYL ALCOHOL) OPTH DROPS OU SCH ×4 (04:18→21:57)
[2020-12-28] MEDS: MIDODRINE HCL 5 MG TABLET GT SCH ×3 (05:35→21:56)
[2020-12-28] MEDS: POTASSIUM CHLORIDE ORAL LIQUID 20 MEQ/15 ML GT SCH (09:33)
[2020-12-28] MEDS: SPIRONOLACTONE 25 MG TABLET PO SCH ×2 (09:33→21:56)
[2020-12-28] MEDS: METOCLOPRAMIDE HCL 10 MG/10 ML UNIT DOSE CUP PO SCH ×2 (09:33→21:57)
[2020-12-28] MEDS: FLUDROCORTISONE ACETATE 0.1 MG TABLET (FP) GT SCH (09:33)
[2020-12-28] MEDS: amLODIPine BESYLATE 10 MG TABLET (FP) GT SCH (09:33)
[2020-12-28] MEDS: AMOX TR/POTASSIUM CLAVULANATE 600 MG/5 ML PO SCH ×2 (09:33→17:58)
[2020-12-28] MEDS: HEPARIN NA (PORCINE) 5,000 UNITS/ML 1ML VIAL SQ SCH ×2 (09:34→21:56)
[2020-12-28] MEDS: NYSTATIN POWDER 100,000 UNITS/GM - 15 GM TOPICAL POWDER TP SCH ×2 (09:37→21:57)
[2020-12-28] MEDS: CLOTRIMAZOLE/BETAMET DIPROP 15 GM TUBE TP SCH ×2 (09:37→21:57)
[2020-12-28 09:51] LABS: BLOOD UREA NITROGEN 18.7 mg/dL (7-18)
[2020-12-28 09:53] LABS: CALCIUM 8.3 mg/dL (8.5-10.1)
[2020-12-28 09:56] LABS: CREATININE 0.3 mg/dL (0.55-1.3)
[2020-12-28] MEDS: FUROSEMIDE 40 MG/5 ML UNIT-DOSE CUP GT SCH (12:12)
[2020-12-28 13:09] LABS: BODY FLUID ALBUMIN 2.6 g/dL (Not Estab.)
[2020-12-28] MEDS: SENNOSIDES 8.8 MG/5 ML BULK BOTTLE GT SCH (21:57)
[2020-12-29] MEDS: ARTIFICIAL TEARS (POLYVINYL ALCOHOL) OPTH DROPS OU SCH ×4 (02:42→23:11)
[2020-12-29] MEDS: MIDODRINE HCL 5 MG TABLET GT SCH ×3 (05:26→23:11)
[2020-12-29 10:12] LABS: CALCIUM 8.3 mg/dL (8.5-10.1)
[2020-12-29 10:14] LABS: BLOOD UREA NITROGEN 18.6 mg/dL (7-18)
[2020-12-29 10:23] LABS: CREATININE 0.3 mg/dL (0.55-1.3)
[2020-12-29] MEDS: HEPARIN NA (PORCINE) 5,000 UNITS/ML 1ML VIAL SQ SCH ×2 (11:18→23:12)
[2020-12-29] MEDS: METOCLOPRAMIDE HCL 10 MG/10 ML UNIT DOSE CUP PO SCH ×2 (11:18→23:11)
[2020-12-29] MEDS: SPIRONOLACTONE 25 MG TABLET PO SCH ×2 (11:18→23:11)
[2020-12-29] MEDS: AMOX TR/POTASSIUM CLAVULANATE 600 MG/5 ML PO SCH ×2 (11:18→17:38)
[2020-12-29] MEDS: amLODIPine BESYLATE 10 MG TABLET (FP) GT SCH (11:18)
[2020-12-29] MEDS: POTASSIUM CHLORIDE ORAL LIQUID 20 MEQ/15 ML GT SCH (11:18)
[2020-12-29] MEDS: FLUDROCORTISONE ACETATE 0.1 MG TABLET (FP) GT SCH (11:18)
[2020-12-29] MEDS: CLOTRIMAZOLE/BETAMET DIPROP 15 GM TUBE TP SCH ×2 (11:19→23:12)
[2020-12-29] MEDS: FUROSEMIDE 40 MG/5 ML UNIT-DOSE CUP GT SCH (11:19)
[2020-12-29] MEDS: NYSTATIN POWDER 100,000 UNITS/GM - 15 GM TOPICAL POWDER TP SCH ×2 (11:21→23:12)
[2020-12-29] MEDS ORDERED: PT OWN MED DRAWER 7, Y5N ONE (23:13)
[2020-12-29] MEDS: SENNOSIDES 8.8 MG/5 ML BULK BOTTLE GT SCH (23:14)
[2020-12-30] MEDS: ARTIFICIAL TEARS (POLYVINYL ALCOHOL) OPTH DROPS OU SCH ×3 (02:12→16:00)
[2020-12-30] MEDS: MIDODRINE HCL 5 MG TABLET GT SCH ×2 (05:26→16:00)
[2020-12-30 08:39] LABS: CALCIUM 8.5 mg/dL (8.5-10.1)
[2020-12-30 08:41] LABS: BLOOD UREA NITROGEN 16.9 mg/dL (7-18)
[2020-12-30 08:44] LABS: CREATININE 0.3 mg/dL (0.55-1.3)
[2020-12-30] MEDS: SPIRONOLACTONE 25 MG TABLET PO SCH (11:07)
[2020-12-30] MEDS: amLODIPine BESYLATE 10 MG TABLET (FP) GT SCH (11:07)
[2020-12-30] MEDS: AMOX TR/POTASSIUM CLAVULANATE 600 MG/5 ML PO SCH (11:07)
[2020-12-30] MEDS: FLUDROCORTISONE ACETATE 0.1 MG TABLET (FP) GT SCH (11:07)
[2020-12-30] MEDS: HEPARIN NA (PORCINE) 5,000 UNITS/ML 1ML VIAL SQ SCH (11:07)
[2020-12-30] MEDS: METOCLOPRAMIDE HCL 10 MG/10 ML UNIT DOSE CUP PO SCH (11:07)
[2020-12-30] MEDS: NYSTATIN POWDER 100,000 UNITS/GM - 15 GM TOPICAL POWDER TP SCH (11:08)
[2020-12-30] MEDS: FUROSEMIDE 40 MG/5 ML UNIT-DOSE CUP GT SCH (11:08)
[2020-12-30] MEDS: CLOTRIMAZOLE/BETAMET DIPROP 15 GM TUBE TP SCH (11:08)
[2020-12-30] MEDS: POTASSIUM CHLORIDE ORAL LIQUID 20 MEQ/15 ML GT SCH (11:08)
[2020-12-30 15:25] VITALS: BP 119/61; PULSE 72; TEMP 98.5
== END 2020-12-30 17:08 | DRG 394 ==
LOC: JER 18:35 → JERBED 22:45 → J5S 12-26 01:15
PROVIDERS: ADMIT Internal Medicine; ATTEND Family Medicine
PROC: 5A1955Z Respiratory Ventilation, Greater than 96 Consecutive Hours (ICD-10-PCS; 2020-12-25)
PROC: 0W9G3ZX Drainage of Peritoneal Cavity, Percutaneous Approach, Diagnostic (ICD-10-PCS; principal; 2020-12-26)
PROC: 0D20XUZ Change Feeding Device in Upper Intestinal Tract, External Approach (ICD-10-PCS; 2020-12-26)
PROC: 3E0G76Z Introduction of Nutritional Substance into Upper GI, Via Natural or Artificial Opening (ICD-10-PCS; 2020-12-26)
DX: K94.22 Gastrostomy infection (principal); Z99.11 Dependence on respirator [ventilator] status; L03.311 Cellulitis of abdominal wall; J96.10 Chronic respiratory failure, unspecified whether with hypoxia or hypercapnia; J98.11 Atelectasis; R18.8 Other ascites; E46 Unspecified protein-calorie malnutrition; K94.23 Gastrostomy malfunction; J44.9 Chronic obstructive pulmonary disease, unspecified; Z93.0 Tracheostomy status; D64.9 Anemia, unspecified; I11.0 Hypertensive heart disease with heart failure; I50.9 Heart failure, unspecified; E11.9 Type 2 diabetes mellitus without complications; G30.9 Alzheimer's disease, unspecified; F02.80 Dementia in other diseases classified elsewhere, unspecified severity, without behavioral disturbance, psychotic disturbance, mood disturbance, and anxiety; I25.2 Old myocardial infarction; I48.91 Unspecified atrial fibrillation; Y83.8 Other surgical procedures as the cause of abnormal reaction of the patient, or of later complication, without mention of misadventure at the time of the procedure; E66.9 Obesity, unspecified; Z68.34 Body mass index [BMI] 34.0-34.9, adult; E88.09 Other disorders of plasma-protein metabolism, not elsewhere classified
CPT/HCPCS: 36415; 49450; 71045-TC-FY; 71250-TC; 74177-TC; 76700-TC; 76942-TC; 80048; 80053; 82042; 82150; 82465; 82550; 82945; 82977; 83605; 83615; 83735; 83880; 83986; 84100; 84157; 84439; 84443; 84478; 84481; 84484; 85025; 85610; 85730; 87040; 87070; 87075; 87086; 87102; 87116; 87186; 87205; 87206; 87210; 87899; 88108; 88305-TC; 93005; 93010; 93306-TC; 93970-TC; 94002; 99285-25; C9803; J1644; Q9967; U0003; U0005

== ENCOUNTER 2021-03-21 14:15 | Inpatient (IN) | payer OTHER, MEDICARE ==
[2021-03-21 14:38] VITALS: BMI 25.6
[2021-03-21] MEDS ORDERED: PIPERACILLIN/TAZOB 4.5 GM 4.5 GM in DEXTROSE 5%-WATER 100 ML IVPB ONE (14:40)
[2021-03-21] MEDS ORDERED: VANCOMYCIN 1 GM in D5W (PRE-DOCKED) 1,000 MG/250 ML IVPB ONE (14:40)
[2021-03-21] MEDS ORDERED: VANCOMYCIN 1 GRAM (PRE-DOCKED) 1,000 MG/250 ML BAG IVPB ONE (14:54)
[2021-03-21] MEDS ORDERED: PIPERACILLIN/TAZOB 4.5 GM 4.5 GM/100 ML BAG IVPB ONE (14:54)
[2021-03-21] MEDS ORDERED: ACETAMINOPHEN INJECTION 100 ML IVPB ONE ×2 (14:54→18:41)
[2021-03-21] MEDS ORDERED: LACTATED RINGERS SOLUTION 1000 ML INFUS.BAG IV ONE (14:57)
[2021-03-21] MEDS ORDERED: SODIUM CHLORIDE 0.9% 500 ML INFUS.BAG IV ONE (15:46)
[2021-03-21 16:13] LABS: BASO % 0.6 % (0-2.0); EOS % 0.1 % (0-4.5); HEMATOCRIT 43.2 % (32.4-45.2); HEMOGLOBIN 13.6 GM/dL (10.7-15.3); MCH 27.2 pg (25.7-33.7); MCHC 31.5 g/dl (32.0-36.0); MEAN CELL VOLUME 86.3 fl (80-96); MEAN PLT VOLUME 11.8 fl (7.5-11.1); MONO % 7.7 % (3.8-10.2); NEUT % 76.6 % (42.8-82.8); PLATELET COUNT 164 10^3/uL (134-434); RDW 19.8 % (11.6-15.6); WHITE BLOOD COUNT 21.5 K/mm3 (4.0-10.0)
[2021-03-21 16:16] LABS: VENOUS BASE EXCESS 4.5 mmol/L (-2-2); VENOUS O2 SATURATION 82.8 % (70-80); VENOUS PCO2 43.8 mmHg (38-52); VENOUS PH 7.443 (7.310-7.410)
[2021-03-21 16:20] LABS: INR 1.26 (0.83-1.09); PROTHROMBIN TIME (PATIENT) 15.2 SEC (9.7-13.0)
[2021-03-21 16:23] LABS: ACTIVATED PTT 35.6 SECONDS (25.2-36.5)
[2021-03-21 16:34] LABS: CHLORIDE 112 mmol/L (98-107); SODIUM 151 mmol/L (136-145)
[2021-03-21 16:36] LABS: ANION GAP 10 MMOL/L (8-16); CALCIUM 8.6 mg/dL (8.5-10.1); CO2 28 mmol/L (21-32); GLUCOSE,RANDOM 165 mg/dL (74-106)
[2021-03-21 16:37] LABS: ALBUMIN 3.1 g/dl (3.4-5.0)
[2021-03-21 16:39] LABS: SGOT/AST 70 U/L (15-37); SGPT/ALT 78 U/L (13-61)
[2021-03-21 16:40] LABS: CREATININE 1.4 mg/dL (0.55-1.3)
[2021-03-21 16:41] LABS: BILIRUBIN,TOTAL 0.7 mg/dL (0.2-1)
[2021-03-21 16:42] LABS: ALK PHOS 99 U/L (45-117)
[2021-03-21 16:48] LABS: EPI CELLS >36 /uL (0-25.1); HYALINE CASTS 4 /uL (0-3.1); URINE APPEARANCE CLOUDY; URINE BACTERIA 3058 /uL (0-1359); URINE BILIRUBIN NEGATIVE (NEGATIVE); URINE COLOR DK YELLOW; URINE GLUCOSE (UA) NEGATIVE (NEGATIVE); URINE KETONE TRACE (NEGATIVE); URINE LEUK ESTERASE 3+ (NEGATIVE); URINE NITRITE NEGATIVE (NEGATIVE); URINE PROTEIN 2+ (NEGATIVE); URINE WBC 1881 /uL (0-25.8)
[2021-03-21 17:05] LABS: LACTIC ACID 2.3 mmol/L (0.4-2.0)
[2021-03-21 17:05] LABS: BLOOD UREA NITROGEN 122.5 mg/dL (7-18)
[2021-03-21] MEDS ORDERED: METOCLOPRAMIDE HCL 10 MG/10 ML UNIT DOSE CUP PO PRN (17:23)
[2021-03-21] MEDS ORDERED: SODIUM CHLORIDE 1,000 ML IV SCH (18:00)
[2021-03-21] MEDS ORDERED: METOCLOPRAMIDE HCL 10 MG/10 ML UNIT DOSE CUP GT PRN (18:01)
[2021-03-21 18:59] LABS: CHLORIDE 114 mmol/L (98-107); SODIUM 151 mmol/L (136-145)
[2021-03-21 19:02] LABS: CALCIUM 7.7 mg/dL (8.5-10.1)
[2021-03-21 19:03] LABS: ALBUMIN 2.8 g/dl (3.4-5.0); ANION GAP 8 MMOL/L (8-16); CO2 29 mmol/L (21-32); GLUCOSE,RANDOM 207 mg/dL (74-106)
[2021-03-21] MEDS ORDERED: ACETAMINOPHEN 500 MG TABLET (FP) PO PRN (19:05)
[2021-03-21 19:06] LABS: CREATININE 1.3 mg/dL (0.55-1.3); SGOT/AST 35 U/L (15-37); SGPT/ALT 67 U/L (13-61)
[2021-03-21 19:07] LABS: BILIRUBIN,TOTAL 0.9 mg/dL (0.2-1); LACTIC ACID 2.1 mmol/L (0.4-2.0)
[2021-03-21 19:08] LABS: TOT PROT 7.7 g/dl (6.4-8.2)
[2021-03-21 19:09] LABS: ALK PHOS 84 U/L (45-117)
[2021-03-21 19:25] LABS: BLOOD UREA NITROGEN 113.8 mg/dL (7-18)
[2021-03-21 19:38] LABS: ANISOCYTOSIS 0; MACROCYTOSIS 0; PLATELET ESTIMATE DECREASED
[2021-03-21 19:48] LABS: URINE RBC 40.8 /uL (0-23.9); YEAST NONE SEEN (NEGATIVE)
[2021-03-21] MEDS ORDERED: HEPARIN NA (PORCINE) 5,000 UNITS/ML 1ML VIAL ONE (22:00)
[2021-03-21] MEDS ORDERED: MIDODRINE HCL 5 MG TABLET GT SCH (22:00)
[2021-03-21] MEDS ORDERED: SENNOSIDES 8.8 MG/5 ML BULK BOTTLE GT SCH (22:00)
[2021-03-21] MEDS: HEPARIN NA (PORCINE) 5,000 UNITS/ML 1ML VIAL SQ SCH (22:02)
[2021-03-21] MEDS ORDERED: ACETAMINOPHEN 325 MG TABLET (FP) ONE (22:16)
[2021-03-22] MEDS: MEROPENEM 500 MG in DEXTROSE 5%-WATER 100 ML IVPB SCH ×4 (03:28→21:24)
[2021-03-22] MEDS ORDERED: SODIUM CHLORIDE 500 ML IV STA (05:43)
[2021-03-22] MEDS ORDERED: SODIUM CHLORIDE 1,000 ML IV SCH ×2 (05:45→11:06)
[2021-03-22] MEDS ORDERED: HEPARIN NA (PORCINE) 5,000 UNITS/ML 1ML VIAL ONE (05:56)
[2021-03-22] MEDS: HEPARIN NA (PORCINE) 5,000 UNITS/ML 1ML VIAL SQ SCH ×3 (06:02→21:51)
[2021-03-22] MEDS ORDERED: LACTOBACILLUS ACIDOPHILUS 1 TABLET GT SCH (10:00)
[2021-03-22] MEDS ORDERED: amLODIPine BESYLATE 10 MG TABLET (FP) GT SCH (10:00)
[2021-03-22] MEDS ORDERED: AMINO ACIDS/PROTEIN HYDROLYS 30 ML LIQUID.PKT GT SCH (10:00)
[2021-03-22] MEDS ORDERED: FLUDROCORTISONE ACETATE 0.1 MG TABLET (FP) GT SCH (10:00)
[2021-03-22] MEDS ORDERED: ENOXAPARIN NA (PORCINE) 40 MG/0.4 ML DISP.SYRIN SQ SCH (10:00)
[2021-03-22] MEDS ORDERED: DEXTROSE 5%-WATER 100 ML IVPB ONE (10:26)
[2021-03-22] MEDS ORDERED: MEROPENEM 500 MG VIAL (RESTRICTED TO ID) IVPB ONE (10:26)
[2021-03-22] MEDS: MIDODRINE HCL 5 MG TABLET GT SCH ×3 (10:31→18:26)
[2021-03-22] MEDS: MUPIROCIN 2% TOPICAL OINTMENT FOR DECOLONIZATION NS SCH ×2 (13:21→21:53)
[2021-03-22] MEDS ORDERED: VANCOMYCIN 1,000 MG in DEXTROSE 5%-WATER - 250 ML IVPB SCH (17:30)
[2021-03-22] MEDS ORDERED: VANCOMYCIN 1 GRAM (PRE-DOCKED) 1,000 MG/250 ML BAG IVPB SCH (17:32)
[2021-03-22 18:14] LABS: BASO % 0.7 % (0-2.0); EOS % 2.6 % (0-4.5); HEMATOCRIT 39.7 % (32.4-45.2); HEMOGLOBIN 12.6 GM/dL (10.7-15.3); LYMPH % 13.2 % (8-40); MCH 27.6 pg (25.7-33.7); MCHC 31.7 g/dl (32.0-36.0); MEAN PLT VOLUME 11.3 fl (7.5-11.1); MONO % 3.8 % (3.8-10.2); NEUT % 79.7 % (42.8-82.8); PLATELET COUNT 113 10^3/uL (134-434); RBC 4.56 M/mm3 (3.60-5.2); RDW 20.1 % (11.6-15.6)
[2021-03-22] MEDS ORDERED: DEXTROSE 5%-WATER - 50 ML IVPB ONE (18:17)
[2021-03-22] MEDS ORDERED: PIPERACILLIN/TAZOBACTAM 3.375 GM VIAL IVPB ONE (18:17)
[2021-03-22] MEDS: CLOTRIMAZOLE/BETAMET DIPROP 15 GM TUBE TP SCH ×3 (18:25→21:50)
[2021-03-22] MEDS: PIPERACILLIN/TAZOB 3.375 GM 3.375 GM in DEXTROSE 5%-WATER - 50 ML IVPB SCH (18:27)
[2021-03-22 18:43] LABS: CREATININE 0.7 mg/dL (0.55-1.3)
[2021-03-22 18:45] LABS: BILIRUBIN,TOTAL 0.5 mg/dL (0.2-1)
[2021-03-22 18:52] LABS: ANISOCYTOSIS 2+; MACROCYTOSIS 0; PLATELET ESTIMATE DECREASED
[2021-03-22 19:10] LABS: ALBUMIN 2.4 g/dl (3.4-5.0); TOT PROT 6.6 g/dl (6.4-8.2)
[2021-03-22] MEDS ORDERED: ACETAMINOPHEN 500 MG TABLET (FP) GT PRN (19:47)
[2021-03-22] MEDS ORDERED: METOCLOPRAMIDE HCL 10 MG/10 ML UNIT DOSE CUP GT PRN (19:47)
[2021-03-22] MEDS: POTASSIUM CHLORIDE 10 MEQ in SODIUM CHLORIDE 0.45% 1,000 ML IVPB SCH (21:12)
[2021-03-22] MEDS ORDERED: PT OWN MED DRAWER 7, Y5N ONE (21:29)
[2021-03-22] MEDS ORDERED: CHLORHEXIDINE GLUCONATE 4% CLEANSER FOR DECOLONIZATION TP SCH (22:00)
[2021-03-22] MEDS ORDERED: SENNOSIDES 8.8 MG/5 ML BULK BOTTLE GT SCH (22:00)
[2021-03-23] MEDS ORDERED: PT OWN MED DRAWER 7, Y5N ONE ×2 (00:18→23:04)
[2021-03-23] MEDS ORDERED: DEXTROSE 5%-WATER - 50 ML IVPB ONE ×3 (00:18→16:30)
[2021-03-23] MEDS ORDERED: PIPERACILLIN/TAZOBACTAM 3.375 GM VIAL IVPB ONE ×3 (00:18→16:30)
[2021-03-23] MEDS: PIPERACILLIN/TAZOB 3.375 GM 3.375 GM in DEXTROSE 5%-WATER - 50 ML IVPB SCH ×3 (02:25→17:06)
[2021-03-23] MEDS: HEPARIN NA (PORCINE) 5,000 UNITS/ML 1ML VIAL SQ SCH ×3 (05:42→23:16)
[2021-03-23] MEDS: POTASSIUM CHLORIDE 10 MEQ in SODIUM CHLORIDE 0.45% 1,000 ML IVPB SCH ×2 (06:02→11:46)
[2021-03-23 06:49] LABS: BASO % 0.7 % (0-2.0); EOS % 2.7 % (0-4.5); HEMATOCRIT 38.5 % (32.4-45.2); HEMOGLOBIN 11.7 GM/dL (10.7-15.3); LYMPH % 23.4 % (8-40); MCH 27.4 pg (25.7-33.7); MCHC 30.5 g/dl (32.0-36.0); MEAN CELL VOLUME 89.8 fl (80-96); MEAN PLT VOLUME 12.1 fl (7.5-11.1); MONO % 4.8 % (3.8-10.2); NEUT % 68.4 % (42.8-82.8); PLATELET COUNT 110 10^3/uL (134-434); RBC 4.28 M/mm3 (3.60-5.2); RDW 19.9 % (11.6-15.6); WHITE BLOOD COUNT 15.1 K/mm3 (4.0-10.0)
[2021-03-23 07:13] LABS: ALBUMIN 2.5 g/dl (3.4-5.0); CALCIUM 7.5 mg/dL (8.5-10.1); MAGNESIUM 2.8 mg/dL (1.8-2.4)
[2021-03-23 07:16] LABS: CREATININE 0.5 mg/dL (0.55-1.3); PHOSPHOROUS 3.6 mg/dL (2.5-4.9)
[2021-03-23 07:18] LABS: BILIRUBIN,TOTAL 0.6 mg/dL (0.2-1); TOT PROT 6.5 g/dl (6.4-8.2)
[2021-03-23] MEDS ORDERED: AMINO ACIDS/PROTEIN HYDROLYS 30 ML LIQUID.PKT GT SCH (10:00)
[2021-03-23] MEDS ORDERED: LACTOBACILLUS ACIDOPHILUS 1 TABLET GT SCH (10:00)
[2021-03-23] MEDS ORDERED: FLUDROCORTISONE ACETATE 0.1 MG TABLET (FP) GT SCH (10:00)
[2021-03-23] MEDS: MIDODRINE HCL 5 MG TABLET GT SCH ×4 (10:06→17:07)
[2021-03-23] MEDS: CLOTRIMAZOLE/BETAMET DIPROP 15 GM TUBE TP SCH ×2 (10:13→23:19)
[2021-03-23] MEDS: MUPIROCIN 2% TOPICAL OINTMENT FOR DECOLONIZATION NS SCH (10:13)
[2021-03-23] MEDS ORDERED: METOCLOPRAMIDE HCL 10 MG/10 ML UNIT DOSE CUP GT PRN (10:41)
[2021-03-23] MEDS ORDERED: ACETAMINOPHEN 500 MG TABLET (FP) GT PRN (10:41)
[2021-03-23] MEDS ORDERED: HEPARIN NA (PORCINE) 5,000 UNITS/ML 1ML VIAL IVPUSH PRN (12:14)
[2021-03-23] MEDS: VANCOMYCIN 1 GRAM (PRE-DOCKED) 1,000 MG/250 ML BAG IVPB SCH (16:44)
[2021-03-23] MEDS: SENNOSIDES 8.8 MG/5 ML BULK BOTTLE GT SCH (23:16)
[2021-03-24] MEDS: NOREPINEPHRINE D5W PREMIX 16,000 MCG/500 ML BAG IVPB SCH (00:32)
[2021-03-24] MEDS: POTASSIUM CHLORIDE 10 MEQ in SODIUM CHLORIDE 0.45% 1,000 ML IVPB SCH ×4 (00:33→17:31)
[2021-03-24] MEDS ORDERED: PIPERACILLIN/TAZOBACTAM 3.375 GM VIAL IVPB ONE ×2 (01:30→09:01)
[2021-03-24] MEDS ORDERED: DEXTROSE 5%-WATER - 50 ML IVPB ONE ×2 (01:31→09:01)
[2021-03-24] MEDS: PIPERACILLIN/TAZOB 3.375 GM 3.375 GM in DEXTROSE 5%-WATER - 50 ML IVPB SCH ×2 (01:56→09:06)
[2021-03-24] MEDS ORDERED: SODIUM CHLORIDE 0.9% 500 ML INFUS.BAG IV ONE (05:18)
[2021-03-24] MEDS: HEPARIN NA (PORCINE) 5,000 UNITS/ML 1ML VIAL SQ SCH ×3 (05:50→21:47)
[2021-03-24 07:50] LABS: HEMOGLOBIN 12.5 GM/dL (10.7-15.3); MCH 28.3 pg (25.7-33.7); MEAN CELL VOLUME 88.6 fl (80-96); MEAN PLT VOLUME 11.6 fl (7.5-11.1); PLATELET COUNT 114 10^3/uL (134-434); RDW 19.6 % (11.6-15.6); WHITE BLOOD COUNT 10.6 K/mm3 (4.0-10.0)
[2021-03-24 08:42] LABS: CALCIUM 7.3 mg/dL (8.5-10.1)
[2021-03-24 08:44] LABS: ALBUMIN 2.3 g/dl (3.4-5.0)
[2021-03-24 08:48] LABS: CREATININE 0.5 mg/dL (0.55-1.3)
[2021-03-24 08:51] LABS: PHOSPHOROUS 2.6 mg/dL (2.5-4.9)
[2021-03-24 08:52] LABS: BILIRUBIN,TOTAL 0.6 mg/dL (0.2-1)
[2021-03-24 08:53] LABS: BLOOD UREA NITROGEN 35.7 mg/dL (7-18)
[2021-03-24] MEDS ORDERED: PT OWN MED DRAWER 7, Y5N ONE ×2 (09:01→21:39)
[2021-03-24] MEDS: FLUDROCORTISONE ACETATE 0.1 MG TABLET (FP) GT SCH (09:06)
[2021-03-24] MEDS: AMINO ACIDS/PROTEIN HYDROLYS 30 ML LIQUID.PKT GT SCH (09:06)
[2021-03-24] MEDS: MIDODRINE HCL 5 MG TABLET GT SCH ×3 (09:07→17:32)
[2021-03-24] MEDS: CLOTRIMAZOLE/BETAMET DIPROP 15 GM TUBE TP SCH ×2 (09:22→21:47)
[2021-03-24] MEDS: ASPIRIN 81 MG CHEWABLE TABLETS PO SCH (09:26)
[2021-03-24] MEDS: INSULIN SLIDING SCALE (NOVOLOG) 1 VIAL SQ SCH ×3 (10:02→22:11)
[2021-03-24] MEDS: MEROPENEM 1 GM in DEXTROSE 5%-WATER 100 ML IVPB SCH ×2 (13:15→17:31)
[2021-03-24] MEDS ORDERED: DEXTROSE 5%-WATER 100 ML IVPB ONE ×2 (13:53→16:23)
[2021-03-24] MEDS ORDERED: MEROPENEM 1 GM VIAL (RESTRICTED TO ID) IVPB ONE ×2 (13:53→16:23)
[2021-03-24] MEDS ORDERED: SODIUM CHLORIDE 0.45% 250 ML IV SCH (14:30)
[2021-03-24] MEDS: VANCOMYCIN 1 GRAM (PRE-DOCKED) 1,000 MG/250 ML BAG IVPB SCH (16:35)
[2021-03-24] MEDS ORDERED: POTASSIUM CHLORIDE 10 MEQ in SODIUM CHLORIDE 0.45% 1,000 ML IVPB SCH (19:49)
[2021-03-24] MEDS: SENNOSIDES 8.8 MG/5 ML BULK BOTTLE GT SCH ×2 (21:47→22:12)
[2021-03-25] MEDS: NOREPINEPHRINE D5W PREMIX 16,000 MCG/500 ML BAG IVPB SCH (00:20)
[2021-03-25] MEDS ORDERED: DEXTROSE 5%-WATER 100 ML IVPB ONE ×3 (00:47→17:23)
[2021-03-25] MEDS ORDERED: MEROPENEM 1 GM VIAL (RESTRICTED TO ID) IVPB ONE ×3 (00:47→17:23)
[2021-03-25] MEDS: MEROPENEM 1 GM in DEXTROSE 5%-WATER 100 ML IVPB SCH ×3 (01:14→17:43)
[2021-03-25] MEDS: HEPARIN NA (PORCINE) 5,000 UNITS/ML 1ML VIAL SQ SCH ×3 (06:17→21:39)
[2021-03-25] MEDS: INSULIN SLIDING SCALE (NOVOLOG) 1 VIAL SQ SCH ×4 (06:21→21:39)
[2021-03-25 07:31] LABS: BASO % 0.5 % (0-2.0); EOS % 4.4 % (0-4.5); HEMATOCRIT 35.4 % (32.4-45.2); HEMOGLOBIN 11.4 GM/dL (10.7-15.3); LYMPH % 21.6 % (8-40); MCH 28.1 pg (25.7-33.7); MCHC 32.2 g/dl (32.0-36.0); MEAN CELL VOLUME 87.3 fl (80-96); MEAN PLT VOLUME 12.3 fl (7.5-11.1); MONO % 4.9 % (3.8-10.2); NEUT % 68.6 % (42.8-82.8); PLATELET COUNT 136 10^3/uL (134-434); RBC 4.05 M/mm3 (3.60-5.2); RDW 19.5 % (11.6-15.6); WHITE BLOOD COUNT 8.3 K/mm3 (4.0-10.0)
[2021-03-25 07:52] LABS: CALCIUM 7.8 mg/dL (8.5-10.1)
[2021-03-25 07:54] LABS: ALBUMIN 2.4 g/dl (3.4-5.0); BLOOD UREA NITROGEN 21.9 mg/dL (7-18); MAGNESIUM 2.1 mg/dL (1.8-2.4)
[2021-03-25 07:56] LABS: CREATININE 0.4 mg/dL (0.55-1.3); PHOSPHOROUS 3.1 mg/dL (2.5-4.9)
[2021-03-25 07:58] LABS: BILIRUBIN,TOTAL 0.6 mg/dL (0.2-1); TOT PROT 6.2 g/dl (6.4-8.2)
[2021-03-25] MEDS ORDERED: POTASSIUM CHLORIDE 10 MEQ in SODIUM CHLORIDE 0.45% 1,000 ML IVPB SCH ×2 (08:18→09:00)
[2021-03-25] MEDS: AMINO ACIDS/PROTEIN HYDROLYS 30 ML LIQUID.PKT GT SCH (09:24)
[2021-03-25] MEDS: MIDODRINE HCL 5 MG TABLET GT SCH ×3 (09:24→17:42)
[2021-03-25] MEDS: FLUDROCORTISONE ACETATE 0.1 MG TABLET (FP) GT SCH (09:24)
[2021-03-25] MEDS: ASPIRIN 81 MG CHEWABLE TABLETS PO SCH (09:25)
[2021-03-25] MEDS: CLOTRIMAZOLE/BETAMET DIPROP 15 GM TUBE TP SCH ×2 (09:26→21:39)
[2021-03-25] MEDS ORDERED: WATER IV SCH (12:30)
[2021-03-25] MEDS ORDERED: DEXTROSE 5% IV SCH (12:30)
[2021-03-25] MEDS ORDERED: POTASSIUM CHLORIDE IV SCH (12:30)
[2021-03-25] MEDS: DEXTROSE 5% IV SCH (13:40)
[2021-03-25] MEDS: WATER IV SCH (13:40)
[2021-03-25] MEDS: POTASSIUM CHLORIDE IV SCH (13:40)
[2021-03-25] MEDS: VANCOMYCIN 1 GRAM (PRE-DOCKED) 1,000 MG/250 ML BAG IVPB SCH (17:43)
[2021-03-25] MEDS ORDERED: SODIUM CHLORIDE 250 ML IV STA (20:29)
[2021-03-25] MEDS: SENNOSIDES 8.8 MG/5 ML BULK BOTTLE GT SCH ×2 (21:39→21:42)
[2021-03-26] MEDS ORDERED: SODIUM CHLORIDE 500 ML IV STA (00:44)
[2021-03-26] MEDS: NOREPINEPHRINE D5W PREMIX 16,000 MCG/500 ML BAG IVPB SCH (00:47)
[2021-03-26] MEDS: WATER IV SCH ×3 (00:54→21:54)
[2021-03-26] MEDS: DEXTROSE 5% IV SCH ×3 (00:54→21:54)
[2021-03-26] MEDS: POTASSIUM CHLORIDE IV SCH ×3 (00:54→21:54)
[2021-03-26] MEDS ORDERED: MEROPENEM 1 GM VIAL (RESTRICTED TO ID) IVPB ONE ×4 (00:58→19:31)
[2021-03-26] MEDS ORDERED: DEXTROSE 5%-WATER 100 ML IVPB ONE ×4 (00:59→19:31)
[2021-03-26] MEDS: MEROPENEM 1 GM in DEXTROSE 5%-WATER 100 ML IVPB SCH ×3 (01:15→17:17)
[2021-03-26] MEDS: HEPARIN NA (PORCINE) 5,000 UNITS/ML 1ML VIAL SQ SCH ×3 (06:36→21:55)
[2021-03-26] MEDS: INSULIN SLIDING SCALE (NOVOLOG) 1 VIAL SQ SCH ×4 (06:43→22:09)
[2021-03-26 07:01] LABS: BASO % 0.9 % (0-2.0); EOS % 7.3 % (0-4.5); HEMATOCRIT 35.8 % (32.4-45.2); HEMOGLOBIN 11.5 GM/dL (10.7-15.3); MCH 28.4 pg (25.7-33.7); MCHC 32.3 g/dl (32.0-36.0); MEAN PLT VOLUME 11.3 fl (7.5-11.1); MONO % 5.5 % (3.8-10.2); NEUT % 66.3 % (42.8-82.8); PLATELET COUNT 148 10^3/uL (134-434); RBC 4.06 M/mm3 (3.60-5.2); RDW 20.1 % (11.6-15.6); WHITE BLOOD COUNT 6.5 K/mm3 (4.0-10.0)
[2021-03-26 07:25] LABS: ALBUMIN 2.5 g/dl (3.4-5.0)
[2021-03-26 07:26] LABS: BLOOD UREA NITROGEN 9.8 mg/dL (7-18); MAGNESIUM 1.7 mg/dL (1.8-2.4)
[2021-03-26 07:29] LABS: CREATININE 0.3 mg/dL (0.55-1.3); PHOSPHOROUS 1.8 mg/dL (2.5-4.9)
[2021-03-26 07:30] LABS: BILIRUBIN,TOTAL 0.5 mg/dL (0.2-1); TOT PROT 6.5 g/dl (6.4-8.2)
[2021-03-26] MEDS ORDERED: MAGNESIUM SULF 50% (8.12 MEQ/2 ML-1 GM VIAL) IVPB ONE (07:49)
[2021-03-26] MEDS ORDERED: POTASSIUM PHOSPHATE 30 MM in SODIUM CHLORIDE 250 ML IVPB ONE (07:49)
[2021-03-26] MEDS ORDERED: NOREPINEPHRINE D5W PREMIX 16,000 MCG/500 ML BAG IVPB SCH (08:45)
[2021-03-26] MEDS: FLUDROCORTISONE ACETATE 0.1 MG TABLET (FP) GT SCH (09:10)
[2021-03-26] MEDS: MIDODRINE HCL 5 MG TABLET GT SCH ×3 (09:10→17:17)
[2021-03-26] MEDS: ASPIRIN 81 MG CHEWABLE TABLETS PO SCH (09:10)
[2021-03-26] MEDS: AMINO ACIDS/PROTEIN HYDROLYS 30 ML LIQUID.PKT GT SCH (09:13)
[2021-03-26] MEDS: CLOTRIMAZOLE/BETAMET DIPROP 15 GM TUBE TP SCH ×2 (09:59→21:55)
[2021-03-26] MEDS: VANCOMYCIN 1 GRAM (PRE-DOCKED) 1,000 MG/250 ML BAG IVPB SCH (16:52)
[2021-03-26] MEDS ORDERED: SODIUM CHLORIDE 250 ML IV PRN (20:01)
[2021-03-26] MEDS: SENNOSIDES 8.8 MG/5 ML BULK BOTTLE GT SCH (21:55)
[2021-03-27] MEDS: MEROPENEM 1 GM in DEXTROSE 5%-WATER 100 ML IVPB SCH ×3 (01:18→17:00)
[2021-03-27] MEDS: HEPARIN NA (PORCINE) 5,000 UNITS/ML 1ML VIAL SQ SCH (05:29)
[2021-03-27 06:23] LABS: BASO % 0.7 % (0-2.0); EOS % 6.3 % (0-4.5); HEMATOCRIT 34.6 % (32.4-45.2); HEMOGLOBIN 11.2 GM/dL (10.7-15.3); LYMPH % 22.3 % (8-40); MCH 28.7 pg (25.7-33.7); MCHC 32.2 g/dl (32.0-36.0); MEAN CELL VOLUME 89.1 fl (80-96); MEAN PLT VOLUME 11.3 fl (7.5-11.1); MONO % 5.6 % (3.8-10.2); NEUT % 65.1 % (42.8-82.8); PLATELET COUNT 159 10^3/uL (134-434); RBC 3.88 M/mm3 (3.60-5.2); RDW 19.8 % (11.6-15.6); WHITE BLOOD COUNT 7.1 K/mm3 (4.0-10.0)
[2021-03-27] MEDS: DEXTROSE 5% IV SCH (06:39)
[2021-03-27] MEDS: POTASSIUM CHLORIDE IV SCH (06:39)
[2021-03-27] MEDS: WATER IV SCH (06:39)
[2021-03-27 06:53] LABS: ALBUMIN 2.2 g/dl (3.4-5.0); BLOOD UREA NITROGEN 6.7 mg/dL (7-18); MAGNESIUM 2.1 mg/dL (1.8-2.4)
[2021-03-27 06:57] LABS: CREATININE 0.2 mg/dL (0.55-1.3); PHOSPHOROUS 2.2 mg/dL (2.5-4.9)
[2021-03-27 06:58] LABS: BILIRUBIN,TOTAL 0.4 mg/dL (0.2-1); TOT PROT 5.9 g/dl (6.4-8.2)
[2021-03-27] MEDS: INSULIN SLIDING SCALE (NOVOLOG) 1 VIAL SQ SCH ×4 (07:04→21:50)
[2021-03-27] MEDS ORDERED: DEXTROSE 5%-WATER 100 ML IVPB ONE ×2 (09:17→16:59)
[2021-03-27] MEDS ORDERED: MEROPENEM 1 GM VIAL (RESTRICTED TO ID) IVPB ONE ×2 (09:17→16:59)
[2021-03-27] MEDS ORDERED: PT OWN MED DRAWER 7, Y5N ONE (09:18)
[2021-03-27] MEDS: FLUDROCORTISONE ACETATE 0.1 MG TABLET (FP) GT SCH (09:40)
[2021-03-27] MEDS: AMINO ACIDS/PROTEIN HYDROLYS 30 ML LIQUID.PKT GT SCH (09:40)
[2021-03-27] MEDS: ASPIRIN 81 MG CHEWABLE TABLETS PO SCH (09:40)
[2021-03-27] MEDS: MIDODRINE HCL 5 MG TABLET GT SCH ×3 (09:41→17:01)
[2021-03-27] MEDS: MULTIVIT-MINERALS ORAL LIQUID PO SCH (11:00)
[2021-03-27] MEDS: CLOTRIMAZOLE/BETAMET DIPROP 15 GM TUBE TP SCH ×2 (11:00→21:49)
[2021-03-27] MEDS: BANATROL PLUS POWDER PACKET GT SCH ×2 (13:49→21:49)
[2021-03-27] MEDS ORDERED: BANATROL PLUS POWDER PACKET GT SCH (14:00)
[2021-03-27] MEDS: SENNOSIDES 8.8 MG/5 ML BULK BOTTLE GT SCH (21:51)
[2021-03-27] MEDS ORDERED: APIXABAN 5 MG TABLET PO SCH (22:00)
[2021-03-28] MEDS ORDERED: DEXTROSE 5%-WATER 100 ML IVPB ONE ×3 (01:56→17:42)
[2021-03-28] MEDS ORDERED: MEROPENEM 1 GM VIAL (RESTRICTED TO ID) IVPB ONE ×3 (01:56→17:42)
[2021-03-28] MEDS: MEROPENEM 1 GM in DEXTROSE 5%-WATER 100 ML IVPB SCH ×3 (01:58→17:43)
[2021-03-28] MEDS: BANATROL PLUS POWDER PACKET GT SCH ×3 (05:48→22:12)
[2021-03-28 07:16] LABS: BASO % 0.8 % (0-2.0); EOS % 4.9 % (0-4.5); HEMATOCRIT 36.5 % (32.4-45.2); HEMOGLOBIN 11.7 GM/dL (10.7-15.3); LYMPH % 22.9 % (8-40); MCH 28.3 pg (25.7-33.7); MCHC 31.9 g/dl (32.0-36.0); MEAN CELL VOLUME 88.7 fl (80-96); MEAN PLT VOLUME 10.8 fl (7.5-11.1); MONO % 6.6 % (3.8-10.2); NEUT % 64.8 % (42.8-82.8); PLATELET COUNT 188 10^3/uL (134-434); RBC 4.11 M/mm3 (3.60-5.2); RDW 19.9 % (11.6-15.6); WHITE BLOOD COUNT 7.8 K/mm3 (4.0-10.0)
[2021-03-28 07:42] LABS: ALBUMIN 2.5 g/dl (3.4-5.0); CALCIUM 8.3 mg/dL (8.5-10.1)
[2021-03-28 07:43] LABS: BLOOD UREA NITROGEN 9.4 mg/dL (7-18); MAGNESIUM 2.1 mg/dL (1.8-2.4)
[2021-03-28 07:45] LABS: BILIRUBIN,TOTAL 0.3 mg/dL (0.2-1); CREATININE 0.3 mg/dL (0.55-1.3); TOT PROT 6.6 g/dl (6.4-8.2)
[2021-03-28 07:46] LABS: PHOSPHOROUS 2.7 mg/dL (2.5-4.9)
[2021-03-28] MEDS ORDERED: PT OWN MED DRAWER 7, Y5N ONE (09:36)
[2021-03-28] MEDS: MULTIVIT-MINERALS ORAL LIQUID PO SCH (09:38)
[2021-03-28] MEDS: AMINO ACIDS/PROTEIN HYDROLYS 30 ML LIQUID.PKT GT SCH (09:38)
[2021-03-28] MEDS: FLUDROCORTISONE ACETATE 0.1 MG TABLET (FP) GT SCH (09:39)
[2021-03-28] MEDS: CLOTRIMAZOLE/BETAMET DIPROP 15 GM TUBE TP SCH ×2 (09:39→22:15)
[2021-03-28] MEDS: ASPIRIN 81 MG CHEWABLE TABLETS PO SCH (09:40)
[2021-03-28] MEDS: MIDODRINE HCL 5 MG TABLET GT SCH ×3 (09:41→17:44)
[2021-03-28] MEDS: INSULIN SLIDING SCALE (NOVOLOG) 1 VIAL SQ SCH ×3 (12:23→22:12)
[2021-03-28] MEDS ORDERED: METOCLOPRAMIDE HCL 10 MG/10 ML UNIT DOSE CUP GT PRN (12:59)
[2021-03-28] MEDS ORDERED: ACETAMINOPHEN 500 MG TABLET (FP) GT PRN (12:59)
[2021-03-28] MEDS: VANCOMYCIN 1 GRAM (PRE-DOCKED) 1,000 MG/250 ML BAG IVPB SCH (17:44)
[2021-03-28] MEDS: SENNOSIDES 8.8 MG/5 ML BULK BOTTLE GT SCH (22:15)
[2021-03-29] MEDS ORDERED: DEXTROSE 5%-WATER 100 ML IVPB ONE ×3 (01:29→16:44)
[2021-03-29] MEDS ORDERED: MEROPENEM 1 GM VIAL (RESTRICTED TO ID) IVPB ONE ×3 (01:29→16:44)
[2021-03-29] MEDS: MEROPENEM 1 GM in DEXTROSE 5%-WATER 100 ML IVPB SCH ×3 (01:56→18:55)
[2021-03-29] MEDS: BANATROL PLUS POWDER PACKET GT SCH ×3 (06:16→21:31)
[2021-03-29] MEDS: INSULIN SLIDING SCALE (NOVOLOG) 1 VIAL SQ SCH ×5 (06:40→21:32)
[2021-03-29] MEDS: MIDODRINE HCL 5 MG TABLET GT SCH ×4 (08:15→18:11)
[2021-03-29] MEDS: AMINO ACIDS/PROTEIN HYDROLYS 30 ML LIQUID.PKT GT SCH (11:17)
[2021-03-29] MEDS: MULTIVIT-MINERALS ORAL LIQUID PO SCH (11:17)
[2021-03-29] MEDS: CLOTRIMAZOLE/BETAMET DIPROP 15 GM TUBE TP SCH ×2 (11:18→21:31)
[2021-03-29] MEDS: FLUDROCORTISONE ACETATE 0.1 MG TABLET (FP) GT SCH (11:19)
[2021-03-29 11:35] LABS: BASO % 0.7 % (0-2.0); EOS % 3.9 % (0-4.5); HEMATOCRIT 40.1 % (32.4-45.2); HEMOGLOBIN 12.9 GM/dL (10.7-15.3); MCH 29.2 pg (25.7-33.7); MCHC 32.2 g/dl (32.0-36.0); MEAN CELL VOLUME 90.6 fl (80-96); MEAN PLT VOLUME 11.3 fl (7.5-11.1); NEUT % 51.4 % (42.8-82.8); PLATELET COUNT 187 10^3/uL (134-434); RBC 4.42 M/mm3 (3.60-5.2); WHITE BLOOD COUNT 6.6 K/mm3 (4.0-10.0)
[2021-03-29 12:16] LABS: CALCIUM 8.9 mg/dL (8.5-10.1)
[2021-03-29 12:17] LABS: ALBUMIN 2.6 g/dl (3.4-5.0); BLOOD UREA NITROGEN 10.8 mg/dL (7-18); MAGNESIUM 2.2 mg/dL (1.8-2.4)
[2021-03-29 12:20] LABS: CREATININE 0.3 mg/dL (0.55-1.3); PHOSPHOROUS 2.7 mg/dL (2.5-4.9)
[2021-03-29 12:21] LABS: BILIRUBIN,TOTAL 0.4 mg/dL (0.2-1); TOT PROT 6.9 g/dl (6.4-8.2)
[2021-03-29 12:28] LABS: ANISOCYTOSIS 1+; MACROCYTOSIS 0; PLATELET ESTIMATE NORMAL
[2021-03-29] MEDS ORDERED: PT OWN MED DRAWER 7, Y5N ONE (15:10)
[2021-03-29] MEDS: VANCOMYCIN 1 GRAM (PRE-DOCKED) 1,000 MG/250 ML BAG IVPB SCH (16:41)
[2021-03-29] MEDS: SENNOSIDES 8.8 MG/5 ML BULK BOTTLE GT SCH (21:32)
[2021-03-30] MEDS ORDERED: MEROPENEM 1 GM VIAL (RESTRICTED TO ID) IVPB ONE ×3 (01:05→17:01)
[2021-03-30] MEDS ORDERED: DEXTROSE 5%-WATER 100 ML IVPB ONE ×3 (01:06→17:01)
[2021-03-30] MEDS: MEROPENEM 1 GM in DEXTROSE 5%-WATER 100 ML IVPB SCH ×3 (02:25→17:05)
[2021-03-30] MEDS: BANATROL PLUS POWDER PACKET GT SCH ×3 (05:05→21:13)
[2021-03-30] MEDS: INSULIN SLIDING SCALE (NOVOLOG) 1 VIAL SQ SCH ×4 (06:03→21:13)
[2021-03-30 11:29] LABS: HEMATOCRIT 41.5 % (32.4-45.2); HEMOGLOBIN 13.4 GM/dL (10.7-15.3); MCH 28.9 pg (25.7-33.7); MCHC 32.3 g/dl (32.0-36.0); MEAN CELL VOLUME 89.5 fl (80-96); RBC 4.63 M/mm3 (3.60-5.2); RDW 21.4 % (11.6-15.6); WHITE BLOOD COUNT 7.2 K/mm3 (4.0-10.0)
[2021-03-30 11:31] LABS: MEAN PLT VOLUME 10.9 fl (7.5-11.1); PLATELET COUNT 172 10^3/uL (134-434)
[2021-03-30 11:57] LABS: CALCIUM 8.6 mg/dL (8.5-10.1)
[2021-03-30 11:58] LABS: BLOOD UREA NITROGEN 10.7 mg/dL (7-18)
[2021-03-30] MEDS ORDERED: PT OWN MED DRAWER 7, Y5N ONE (11:58)
[2021-03-30 12:01] LABS: CREATININE 0.3 mg/dL (0.55-1.3)
[2021-03-30 12:21] LABS: ANISOCYTOSIS 1+; MACROCYTOSIS 0; PLATELET ESTIMATE NORMAL
[2021-03-30] MEDS: AMINO ACIDS/PROTEIN HYDROLYS 30 ML LIQUID.PKT GT SCH (12:49)
[2021-03-30] MEDS: MIDODRINE HCL 5 MG TABLET GT SCH ×3 (12:50→18:38)
[2021-03-30] MEDS: FLUDROCORTISONE ACETATE 0.1 MG TABLET (FP) GT SCH (12:50)
[2021-03-30] MEDS: MULTIVIT-MINERALS ORAL LIQUID PO SCH (12:50)
[2021-03-30] MEDS: CLOTRIMAZOLE/BETAMET DIPROP 15 GM TUBE TP SCH ×2 (12:50→21:13)
[2021-03-30] MEDS: VANCOMYCIN 1 GRAM (PRE-DOCKED) 1,000 MG/250 ML BAG IVPB SCH (18:38)
[2021-03-30] MEDS: SENNOSIDES 8.8 MG/5 ML BULK BOTTLE GT SCH (21:13)
[2021-03-31] MEDS ORDERED: DEXTROSE 5%-WATER 100 ML IVPB ONE ×3 (01:14→17:56)
[2021-03-31] MEDS ORDERED: MEROPENEM 1 GM VIAL (RESTRICTED TO ID) IVPB ONE ×3 (01:14→17:56)
[2021-03-31] MEDS: MEROPENEM 1 GM in DEXTROSE 5%-WATER 100 ML IVPB SCH ×3 (02:08→18:02)
[2021-03-31] MEDS: BANATROL PLUS POWDER PACKET GT SCH ×3 (05:09→21:26)
[2021-03-31] MEDS: INSULIN SLIDING SCALE (NOVOLOG) 1 VIAL SQ SCH ×4 (06:45→21:27)
[2021-03-31 09:35] LABS: HEMOGLOBIN 12.7 GM/dL (10.7-15.3); MCH 29.3 pg (25.7-33.7); MCHC 32.6 g/dl (32.0-36.0); MEAN CELL VOLUME 89.9 fl (80-96); MEAN PLT VOLUME 10.7 fl (7.5-11.1); PLATELET COUNT 176 10^3/uL (134-434); RBC 4.34 M/mm3 (3.60-5.2); RDW 21.6 % (11.6-15.6); WHITE BLOOD COUNT 10.7 K/mm3 (4.0-10.0)
[2021-03-31 10:33] LABS: ANISOCYTOSIS 0; HELMET CELLS 0; HOWELL-JOLLY BODIES 0; MACROCYTOSIS 0; OVALOCYTE 0; PLATELET ESTIMATE NORMAL; ROULEAU 0; SICKELED CELLS 0; TARGET CELLS 0; TEAR DROP CELLS 0; TOXIC GRANULATION 0
[2021-03-31 10:51] LABS: BLOOD UREA NITROGEN 10.4 mg/dL (7-18); CALCIUM 8.5 mg/dL (8.5-10.1)
[2021-03-31 10:55] LABS: CREATININE 0.3 mg/dL (0.55-1.3)
[2021-03-31] MEDS ORDERED: PT OWN MED DRAWER 7, Y5N ONE (11:08)
[2021-03-31] MEDS: FLUDROCORTISONE ACETATE 0.1 MG TABLET (FP) GT SCH (11:32)
[2021-03-31] MEDS: AMINO ACIDS/PROTEIN HYDROLYS 30 ML LIQUID.PKT GT SCH (11:32)
[2021-03-31] MEDS: MULTIVIT-MINERALS ORAL LIQUID PO SCH (11:33)
[2021-03-31] MEDS: MIDODRINE HCL 5 MG TABLET GT SCH ×3 (11:33→18:02)
[2021-03-31] MEDS: CLOTRIMAZOLE/BETAMET DIPROP 15 GM TUBE TP SCH ×2 (11:34→21:26)
[2021-03-31] MEDS: SENNOSIDES 8.8 MG/5 ML BULK BOTTLE GT SCH (21:28)
[2021-04-01] MEDS ORDERED: DEXTROSE 5%-WATER 100 ML IVPB ONE ×3 (01:05→16:51)
[2021-04-01] MEDS ORDERED: MEROPENEM 1 GM VIAL (RESTRICTED TO ID) IVPB ONE ×3 (01:05→16:51)
[2021-04-01] MEDS: MEROPENEM 1 GM in DEXTROSE 5%-WATER 100 ML IVPB SCH ×3 (01:18→17:11)
[2021-04-01] MEDS: BANATROL PLUS POWDER PACKET GT SCH ×3 (05:25→21:34)
[2021-04-01] MEDS: INSULIN SLIDING SCALE (NOVOLOG) 1 VIAL SQ SCH ×4 (06:23→21:47)
[2021-04-01] MEDS ORDERED: PT OWN MED DRAWER 7, Y5N ONE ×2 (08:51→21:32)
[2021-04-01 09:34] LABS: EOS % 3.2 % (0-4.5); HEMATOCRIT 37.9 % (32.4-45.2); HEMOGLOBIN 12.1 GM/dL (10.7-15.3); MCH 28.6 pg (25.7-33.7); MCHC 31.9 g/dl (32.0-36.0); MEAN CELL VOLUME 89.6 fl (80-96); MEAN PLT VOLUME 10.9 fl (7.5-11.1); MONO % 7.3 % (3.8-10.2); NEUT % 61.5 % (42.8-82.8); PLATELET COUNT 193 10^3/uL (134-434); RBC 4.22 M/mm3 (3.60-5.2); WHITE BLOOD COUNT 6.1 K/mm3 (4.0-10.0)
[2021-04-01] MEDS: AMINO ACIDS/PROTEIN HYDROLYS 30 ML LIQUID.PKT GT SCH (09:38)
[2021-04-01] MEDS: MULTIVIT-MINERALS ORAL LIQUID PO SCH (09:39)
[2021-04-01] MEDS: CLOTRIMAZOLE/BETAMET DIPROP 15 GM TUBE TP SCH (09:40)
[2021-04-01] MEDS: FLUDROCORTISONE ACETATE 0.1 MG TABLET (FP) GT SCH (09:40)
[2021-04-01] MEDS: MIDODRINE HCL 5 MG TABLET GT SCH ×3 (09:41→17:11)
[2021-04-01 10:12] LABS: BLOOD UREA NITROGEN 12.6 mg/dL (7-18); CREATININE 0.3 mg/dL (0.55-1.3)
[2021-04-01 10:15] LABS: CALCIUM 8.2 mg/dL (8.5-10.1)
[2021-04-01] MEDS: SENNOSIDES 8.8 MG/5 ML BULK BOTTLE GT SCH (21:34)
[2021-04-02] MEDS ORDERED: DEXTROSE 5%-WATER 100 ML IVPB ONE ×3 (00:58→17:51)
[2021-04-02] MEDS ORDERED: MEROPENEM 1 GM VIAL (RESTRICTED TO ID) IVPB ONE ×3 (00:58→17:51)
[2021-04-02] MEDS: MEROPENEM 1 GM in DEXTROSE 5%-WATER 100 ML IVPB SCH ×3 (01:59→17:55)
[2021-04-02] MEDS: CLOTRIMAZOLE/BETAMET DIPROP 15 GM TUBE TP SCH ×3 (02:13→21:33)
[2021-04-02] MEDS: BANATROL PLUS POWDER PACKET GT SCH ×3 (05:17→21:33)
[2021-04-02] MEDS: INSULIN SLIDING SCALE (NOVOLOG) 1 VIAL SQ SCH ×4 (06:13→21:42)
[2021-04-02] MEDS: FLUDROCORTISONE ACETATE 0.1 MG TABLET (FP) GT SCH ×2 (09:34→09:44)
[2021-04-02] MEDS: MIDODRINE HCL 5 MG TABLET GT SCH ×4 (09:34→17:55)
[2021-04-02] MEDS: MULTIVIT-MINERALS ORAL LIQUID PO SCH ×2 (09:35→09:44)
[2021-04-02] MEDS: AMINO ACIDS/PROTEIN HYDROLYS 30 ML LIQUID.PKT GT SCH ×2 (09:35→09:44)
[2021-04-02 09:40] LABS: BASO % 0.9 % (0-2.0); EOS % 4.2 % (0-4.5); HEMOGLOBIN 11.6 GM/dL (10.7-15.3); LYMPH % 28.7 % (8-40); MCH 28.8 pg (25.7-33.7); MCHC 32.1 g/dl (32.0-36.0); MEAN CELL VOLUME 89.7 fl (80-96); MONO % 7.4 % (3.8-10.2); NEUT % 58.8 % (42.8-82.8); PLATELET COUNT 185 10^3/uL (134-434); RBC 4.01 M/mm3 (3.60-5.2); RDW 21.7 % (11.6-15.6); WHITE BLOOD COUNT 6.9 K/mm3 (4.0-10.0)
[2021-04-02 09:43] LABS: INR 1.05 (0.83-1.09); PROTHROMBIN TIME (PATIENT) 12.7 SEC (9.7-13.0)
[2021-04-02 10:03] LABS: CALCIUM 8.3 mg/dL (8.5-10.1)
[2021-04-02 10:04] LABS: ALBUMIN 2.3 g/dl (3.4-5.0); BLOOD UREA NITROGEN 11.3 mg/dL (7-18)
[2021-04-02 10:07] LABS: CREATININE 0.2 mg/dL (0.55-1.3)
[2021-04-02 10:08] LABS: BILIRUBIN,TOTAL 0.4 mg/dL (0.2-1); TOT PROT 6.1 g/dl (6.4-8.2)
[2021-04-02 15:07] LABS: BF WBC & OTHER NUCLEATED CELLS 750 /mm3
[2021-04-02 15:59] LABS: BODY FLUID MACROPHAGES 18 %; BODY FLUID MESOTHELIAL 1 %; BODY FLUID MONOCYTE 3 %
[2021-04-02] MEDS: SENNOSIDES 8.8 MG/5 ML BULK BOTTLE GT SCH (21:31)
[2021-04-02] MEDS ORDERED: PT OWN MED DRAWER 7, Y5N ONE (21:33)
[2021-04-03] MEDS ORDERED: MEROPENEM 1 GM VIAL (RESTRICTED TO ID) IVPB ONE ×2 (01:12→09:36)
[2021-04-03] MEDS ORDERED: DEXTROSE 5%-WATER 100 ML IVPB ONE ×2 (01:12→09:37)
[2021-04-03] MEDS: MEROPENEM 1 GM in DEXTROSE 5%-WATER 100 ML IVPB SCH ×3 (01:53→17:25)
[2021-04-03] MEDS: BANATROL PLUS POWDER PACKET GT SCH ×3 (05:34→21:18)
[2021-04-03] MEDS: INSULIN SLIDING SCALE (NOVOLOG) 1 VIAL SQ SCH ×4 (06:16→21:18)
[2021-04-03] MEDS ORDERED: PT OWN MED DRAWER 7, Y5N ONE ×5 (09:37→23:06)
[2021-04-03] MEDS: MULTIVIT-MINERALS ORAL LIQUID PO SCH (09:47)
[2021-04-03] MEDS: MIDODRINE HCL 5 MG TABLET GT SCH ×3 (09:48→17:25)
[2021-04-03] MEDS: AMINO ACIDS/PROTEIN HYDROLYS 30 ML LIQUID.PKT GT SCH (09:48)
[2021-04-03] MEDS: CLOTRIMAZOLE/BETAMET DIPROP 15 GM TUBE TP SCH ×2 (09:50→21:23)
[2021-04-03] MEDS: FLUDROCORTISONE ACETATE 0.1 MG TABLET (FP) GT SCH (09:50)
[2021-04-03] MEDS: SENNOSIDES 8.8 MG/5 ML BULK BOTTLE GT SCH (21:48)
[2021-04-04] MEDS ORDERED: DEXTROSE 5%-WATER 100 ML IVPB ONE ×2 (01:46→09:22)
[2021-04-04] MEDS ORDERED: MEROPENEM 1 GM VIAL (RESTRICTED TO ID) IVPB ONE ×2 (01:46→09:22)
[2021-04-04] MEDS: MEROPENEM 1 GM in DEXTROSE 5%-WATER 100 ML IVPB SCH ×2 (01:53→09:33)
[2021-04-04] MEDS ORDERED: PT OWN MED DRAWER 7, Y5N ONE ×2 (05:47→09:23)
[2021-04-04] MEDS: BANATROL PLUS POWDER PACKET GT SCH (05:55)
[2021-04-04] MEDS: INSULIN SLIDING SCALE (NOVOLOG) 1 VIAL SQ SCH ×2 (06:02→11:35)
[2021-04-04] MEDS: FLUDROCORTISONE ACETATE 0.1 MG TABLET (FP) GT SCH (09:31)
[2021-04-04] MEDS: MIDODRINE HCL 5 MG TABLET GT SCH (09:32)
[2021-04-04] MEDS: AMINO ACIDS/PROTEIN HYDROLYS 30 ML LIQUID.PKT GT SCH (09:33)
[2021-04-04] MEDS: CLOTRIMAZOLE/BETAMET DIPROP 15 GM TUBE TP SCH (09:35)
[2021-04-04] MEDS: MULTIVIT-MINERALS ORAL LIQUID PO SCH (09:35)
[2021-04-04 09:52] VITALS: BP 123/67; PULSE 68; TEMP 97.9
[2021-04-04 18:09] LABS: BODY FLUID ALBUMIN 2.2 g/dL (Not Estab.)
== END 2021-04-04 11:56 | DRG 870 ==
LOC: JER 14:15 → JERBED 17:00 → JICU 03-22 10:07 → J5S 03-28 23:59
PROVIDERS: ADMIT Internal Medicine; ATTEND Family Medicine
PROC: 5A1955Z Respiratory Ventilation, Greater than 96 Consecutive Hours (ICD-10-PCS; 2021-03-21)
PROC: 05HN33Z Insertion of Infusion Device into Left Internal Jugular Vein, Percutaneous Approach (ICD-10-PCS; principal; 2021-03-23)
PROC: B544ZZA Ultrasonography of Left Jugular Veins, Guidance (ICD-10-PCS; 2021-03-23)
PROC: 3E0G76Z Introduction of Nutritional Substance into Upper GI, Via Natural or Artificial Opening (ICD-10-PCS; 2021-03-23)
DX: A41.89 Other specified sepsis (principal); R65.21 Severe sepsis with septic shock; J96.20 Acute and chronic respiratory failure, unspecified whether with hypoxia or hypercapnia; J95.851 Ventilator associated pneumonia; E87.0 Hyperosmolality and hypernatremia; N17.9 Acute kidney failure, unspecified; N39.0 Urinary tract infection, site not specified; I24.8 Other forms of acute ischemic heart disease; I50.32 Chronic diastolic (congestive) heart failure; E87.2 Acidosis; K94.23 Gastrostomy malfunction; R18.8 Other ascites; J90 Pleural effusion, not elsewhere classified; J98.11 Atelectasis; R00.0 Tachycardia, unspecified; I48.91 Unspecified atrial fibrillation; J44.9 Chronic obstructive pulmonary disease, unspecified; E11.9 Type 2 diabetes mellitus without complications; F03.90 Unspecified dementia, unspecified severity, without behavioral disturbance, psychotic disturbance, mood disturbance, and anxiety; I25.10 Atherosclerotic heart disease of native coronary artery without angina pectoris; K21.9 Gastro-esophageal reflux disease without esophagitis; I95.9 Hypotension, unspecified; I48.0 Paroxysmal atrial fibrillation; D64.9 Anemia, unspecified; I25.2 Old myocardial infarction; R14.0 Abdominal distension (gaseous); K57.90 Diverticulosis of intestine, part unspecified, without perforation or abscess without bleeding; G30.9 Alzheimer's disease, unspecified; F02.80 Dementia in other diseases classified elsewhere, unspecified severity, without behavioral disturbance, psychotic disturbance, mood disturbance, and anxiety; I11.0 Hypertensive heart disease with heart failure; Z93.1 Gastrostomy status; B96.20 Unspecified Escherichia coli [E. coli] as the cause of diseases classified elsewhere; R77.8 Other specified abnormalities of plasma proteins; Z86.718 Personal history of other venous thrombosis and embolism
CPT/HCPCS: 36415; 49083; 71045-TC-FY; 74018-TC-FY; 76705-TC; 80048; 80053; 81003; 82042; 82150; 82465; 82803; 82945; 82962; 83605; 83615; 83735; 83986; 84100; 84157; 84478; 84484; 85025; 85027; 85610; 85730; 87040; 87070; 87075; 87086; 87102; 87116; 87186; 87205; 87206; 87210; 87804; 93005; 93010; 93306-TC; 94002; 99291; C9803; G0480; J1644; U0003; U0005

== ENCOUNTER 2021-04-06 18:21 | Inpatient (IN) | payer OTHER, MEDICARE ==
[2021-04-06] MEDS ORDERED: PANTOPRAZOLE SODIUM 40 MG VIAL IVPUSH ONE (19:32)
[2021-04-06] MEDS ORDERED: VANCOMYCIN 1 GM in D5W (PRE-DOCKED) 1,000 MG/250 ML IVPB ONE (19:32)
[2021-04-06] MEDS ORDERED: SODIUM CHLORIDE 500 ML IV STA (19:32)
[2021-04-06] MEDS ORDERED: PIPERACILLIN/TAZOB 4.5 GM 4.5 GM in DEXTROSE 5%-WATER 100 ML IVPB ONE (19:32)
[2021-04-06] MEDS ORDERED: PIPERACILLIN/TAZOB 3.375 GM 3.375 GM in DEXTROSE 5%-WATER - 50 ML IVPB ONE (20:53)
[2021-04-06] MEDS ORDERED: VANCOMYCIN 1 GRAM (PRE-DOCKED) 1,000 MG/250 ML BAG IVPB ONE (21:00)
[2021-04-06] MEDS ORDERED: PANTOPRAZOLE SODIUM 40 MG VIAL ONE (21:00)
[2021-04-06] MEDS ORDERED: PIPERACILLIN/TAZOB 3.375 GM 3.375 GM/50 ML BAG IVPB ONE (21:01)
[2021-04-06 21:09] LABS: BASO % 0.7 % (0-2.0); EOS % 5.8 % (0-4.5); HEMATOCRIT 39.6 % (32.4-45.2); HEMOGLOBIN 12.8 GM/dL (10.7-15.3); LYMPH % 23.3 % (8-40); MCH 29.2 pg (25.7-33.7); MCHC 32.4 g/dl (32.0-36.0); MEAN CELL VOLUME 90.4 fl (80-96); MONO % 4.3 % (3.8-10.2); NEUT % 65.9 % (42.8-82.8); PLATELET COUNT 163 10^3/uL (134-434); RBC 4.38 M/mm3 (3.60-5.2); RDW 22.8 % (11.6-15.6); WHITE BLOOD COUNT 7.3 K/mm3 (4.0-10.0)
[2021-04-06 21:13] LABS: INR 1.03 (0.83-1.09); PROTHROMBIN TIME (PATIENT) 12.4 SEC (9.7-13.0)
[2021-04-06 21:16] LABS: ACTIVATED PTT 33.3 SECONDS (25.2-36.5)
[2021-04-06 21:27] LABS: CHLORIDE 102 mmol/L (98-107); SODIUM 142 mmol/L (136-145)
[2021-04-06 21:29] LABS: CALCIUM 8.8 mg/dL (8.5-10.1)
[2021-04-06 21:30] LABS: ALBUMIN 2.8 g/dl (3.4-5.0); ANION GAP 7 MMOL/L (8-16); BLOOD UREA NITROGEN 10.2 mg/dL (7-18); CO2 33 mmol/L (21-32); GLUCOSE,RANDOM 80 mg/dL (74-106)
[2021-04-06 21:33] LABS: CREATININE 0.3 mg/dL (0.55-1.3); SGOT/AST 21 U/L (15-37); SGPT/ALT 21 U/L (13-61)
[2021-04-06 21:34] LABS: BILIRUBIN,TOTAL 0.5 mg/dL (0.2-1)
[2021-04-06 21:35] LABS: TOT PROT 7.4 g/dl (6.4-8.2)
[2021-04-06 21:41] LABS: ALK PHOS 168 U/L (45-117)
[2021-04-06 21:54] LABS: ANISOCYTOSIS 2+; MACROCYTOSIS 0; PLATELET ESTIMATE NORMAL
[2021-04-07 01:35] LABS: EPI CELLS 10 /uL (0-25.1); HYALINE CASTS 1 /uL (0-3.1); PH,URINE >= 9.0 (5.0-8.0); URINE APPEARANCE CLEAR; URINE BACTERIA 10 /uL (0-1359); URINE BILIRUBIN NEGATIVE (NEGATIVE); URINE COLOR YELLOW; URINE GLUCOSE (UA) NEGATIVE (NEGATIVE); URINE KETONE NEGATIVE (NEGATIVE); URINE LEUK ESTERASE 1+ (NEGATIVE); URINE NITRITE NEGATIVE (NEGATIVE); URINE PROTEIN 1+ (NEGATIVE); URINE RBC 35 /uL (0-23.9); URINE UROBILINOGEN 0.2 mg/dL (0.2-1.0); URINE WBC 62 /uL (0-25.8)
[2021-04-07] MEDS ORDERED: PIPERACILLIN/TAZOB 3.375 GM 3.375 GM/50 ML BAG IVPB ONE ×2 (04:31→09:14)
[2021-04-07] MEDS: PIPERACILLIN/TAZOB 3.375 GM 3.375 GM in DEXTROSE 5%-WATER - 50 ML IVPB SCH ×2 (04:32→09:27)
[2021-04-07] MEDS ORDERED: hydrALAZINE HCL 20 MG/ML VIAL IVPUSH PRN (07:54)
[2021-04-07] MEDS ORDERED: ACETAMINOPHEN 650 MG SUPP.RECT RC PRN (08:25)
[2021-04-07 08:28] LABS: BASO % 1.1 % (0-2.0); HEMATOCRIT 39.1 % (32.4-45.2); HEMOGLOBIN 12.6 GM/dL (10.7-15.3); LYMPH % 28.9 % (8-40); MCH 29.1 pg (25.7-33.7); MCHC 32.3 g/dl (32.0-36.0); MEAN PLT VOLUME 9.7 fl (7.5-11.1); MONO % 9.7 % (3.8-10.2); NEUT % 56.3 % (42.8-82.8); PLATELET COUNT 152 10^3/uL (134-434); RBC 4.34 M/mm3 (3.60-5.2); RDW 22.8 % (11.6-15.6); WHITE BLOOD COUNT 6.6 K/mm3 (4.0-10.0)
[2021-04-07 08:53] LABS: ALBUMIN 2.6 g/dl (3.4-5.0); BLOOD UREA NITROGEN 9.7 mg/dL (7-18); CALCIUM 8.7 mg/dL (8.5-10.1)
[2021-04-07 08:56] LABS: BILIRUBIN,TOTAL 0.7 mg/dL (0.2-1)
[2021-04-07 08:57] LABS: CREATININE 0.3 mg/dL (0.55-1.3)
[2021-04-07] MEDS: DEXTROSE 5%-NORMAL SALINE 1,000 ML IV SCH (09:27)
[2021-04-07] MEDS: INSULIN SLIDING SCALE (NOVOLOG) 1 VIAL SQ SCH ×4 (09:27→23:09)
[2021-04-07 10:59] LABS: VENOUS BASE EXCESS 7.9 mmol/L (-2-2); VENOUS O2 SATURATION 91.6 % (70-80); VENOUS PCO2 54.4 mmHg (38-52); VENOUS PH 7.416 (7.310-7.410)
[2021-04-07] MEDS ORDERED: VANCOMYCIN 1 GRAM (PRE-DOCKED) 1,000 MG/250 ML BAG IVPB SCH (11:00)
[2021-04-07] MEDS: ARTIFICIAL TEARS (POLYVINYL ALCOHOL) OPTH DROPS OU SCH ×2 (11:37→23:04)
[2021-04-07] MEDS: NYSTATIN 100,000 UNIT/GM TOPICAL CREAM 15 GM TUBE TP SCH ×2 (11:39→23:05)
[2021-04-07] MEDS ORDERED: VANCOMYCIN 1 GRAM (PRE-DOCKED) 1,000 MG/250 ML BAG IVPB ONE (12:35)
[2021-04-07] MEDS ORDERED: SILVER SULFADIAZINE 1% TOP CREAM 50 GM JAR TP ONE ×2 (16:14→22:37)
[2021-04-07] MEDS: SILVER SULFADIAZINE 1% TOP CREAM 50 GM JAR TP SCH ×2 (16:21→23:05)
[2021-04-07] MEDS ORDERED: PANTOPRAZOLE SODIUM 40 MG VIAL ONE (22:37)
[2021-04-07] MEDS: CLOTRIMAZOLE 1% VAGINAL CREAM WITH APPLICATOR 45 GM TUBE VG SCH (23:04)
[2021-04-07] MEDS: PANTOPRAZOLE SODIUM 40 MG VIAL IVPUSH SCH (23:05)
[2021-04-08] MEDS ORDERED: VANCOMYCIN 1 GRAM (PRE-DOCKED) 1,000 MG/250 ML BAG IVPB ONE (02:43)
[2021-04-08] MEDS: VANCOMYCIN 1 GRAM (PRE-DOCKED) 1,000 MG/250 ML BAG IVPB SCH ×3 (02:49→23:33)
[2021-04-08] MEDS ORDERED: PIPERACILLIN/TAZOB 3.375 GM 3.375 GM in DEXTROSE 5%-WATER - 50 ML IVPB SCH (03:00)
[2021-04-08] MEDS: INSULIN SLIDING SCALE (NOVOLOG) 1 VIAL SQ SCH ×4 (08:30→22:56)
[2021-04-08] MEDS: DEXTROSE 5%-NORMAL SALINE 1,000 ML IV SCH (10:05)
[2021-04-08] MEDS: ARTIFICIAL TEARS (POLYVINYL ALCOHOL) OPTH DROPS OU SCH ×2 (10:50→23:30)
[2021-04-08] MEDS: SILVER SULFADIAZINE 1% TOP CREAM 50 GM JAR TP SCH ×3 (11:55→23:31)
[2021-04-08 12:14] LABS: BASO % 0.9 % (0-2.0); HEMATOCRIT 37.2 % (32.4-45.2); HEMOGLOBIN 12.2 GM/dL (10.7-15.3); LYMPH % 37.9 % (8-40); MCH 29.3 pg (25.7-33.7); MCHC 32.7 g/dl (32.0-36.0); MEAN CELL VOLUME 89.5 fl (80-96); MEAN PLT VOLUME 9.9 fl (7.5-11.1); MONO % 10.4 % (3.8-10.2); NEUT % 46.8 % (42.8-82.8); PLATELET COUNT 127 10^3/uL (134-434); RBC 4.16 M/mm3 (3.60-5.2); RDW 22.8 % (11.6-15.6); WHITE BLOOD COUNT 8.4 K/mm3 (4.0-10.0)
[2021-04-08 12:41] LABS: CALCIUM 8.3 mg/dL (8.5-10.1)
[2021-04-08 12:44] LABS: CREATININE 0.3 mg/dL (0.55-1.3)
[2021-04-08] MEDS: NYSTATIN 100,000 UNIT/GM TOPICAL CREAM 15 GM TUBE TP SCH ×2 (12:58→23:31)
[2021-04-08] MEDS: PANTOPRAZOLE SODIUM 40 MG VIAL IVPUSH SCH (22:59)
[2021-04-08] MEDS: CLOTRIMAZOLE 1% VAGINAL CREAM WITH APPLICATOR 45 GM TUBE VG SCH (23:31)
[2021-04-09] MEDS: SILVER SULFADIAZINE 1% TOP CREAM 50 GM JAR TP SCH ×3 (06:35→22:41)
[2021-04-09] MEDS: INSULIN SLIDING SCALE (NOVOLOG) 1 VIAL SQ SCH ×4 (06:35→22:40)
[2021-04-09] MEDS ORDERED: METOCLOPRAMIDE HCL 10 MG/10 ML UNIT DOSE CUP PO PRN (08:30)
[2021-04-09] MEDS ORDERED: ACETAMINOPHEN 500 MG TABLET (FP) GT PRN (08:35)
[2021-04-09] MEDS ORDERED: PATIENT'S OWN MEDICATION (NON-FORMULARY) (Aa/Hydrolyzed Collagen, Whey [Lps 15-30 Liquid] GT SCH (10:00)
[2021-04-09 10:45] LABS: BASO % 0.7 % (0-2.0); EOS % 4.6 % (0-4.5); HEMATOCRIT 34.6 % (32.4-45.2); HEMOGLOBIN 11.3 GM/dL (10.7-15.3); LYMPH % 27.4 % (8-40); MCH 29.4 pg (25.7-33.7); MCHC 32.8 g/dl (32.0-36.0); MEAN CELL VOLUME 89.6 fl (80-96); MEAN PLT VOLUME 10.2 fl (7.5-11.1); MONO % 7.4 % (3.8-10.2); NEUT % 59.9 % (42.8-82.8); PLATELET COUNT 126 10^3/uL (134-434); RBC 3.86 M/mm3 (3.60-5.2); RDW 21.9 % (11.6-15.6)
[2021-04-09 11:07] LABS: BLOOD UREA NITROGEN 10.1 mg/dL (7-18); CALCIUM 7.9 mg/dL (8.5-10.1)
[2021-04-09 11:10] LABS: CREATININE 0.6 mg/dL (0.55-1.3)
[2021-04-09] MEDS: FUROSEMIDE 20 MG TABLET (FP) PEG SCH (11:30)
[2021-04-09] MEDS: MULTIVIT-MINERALS ORAL LIQUID GT SCH (11:30)
[2021-04-09] MEDS: ARTIFICIAL TEARS (POLYVINYL ALCOHOL) OPTH DROPS OU SCH ×2 (11:30→22:40)
[2021-04-09] MEDS: FLUDROCORTISONE ACETATE 0.1 MG TABLET (FP) GT SCH (11:30)
[2021-04-09] MEDS: LACTOBACILLUS ACIDOPHILUS 1 TABLET GT SCH (11:30)
[2021-04-09] MEDS: NYSTATIN 100,000 UNIT/GM TOPICAL CREAM 15 GM TUBE TP SCH ×2 (11:31→22:40)
[2021-04-09] MEDS: VANCOMYCIN 1 GRAM (PRE-DOCKED) 1,000 MG/250 ML BAG IVPB SCH (11:31)
[2021-04-09] MEDS: HEPARIN NA (PORCINE) 5,000 UNITS/ML 1ML VIAL SQ SCH ×2 (11:31→22:37)
[2021-04-09 12:40] VITALS: BMI 28.1
[2021-04-09] MEDS: MIDODRINE HCL 5 MG TABLET GT SCH ×2 (13:04→20:37)
[2021-04-09] MEDS: DEXTROSE 5%-NORMAL SALINE 1,000 ML IV SCH (18:30)
[2021-04-09] MEDS ORDERED: SENNOSIDES 8.8 MG/5 ML BULK BOTTLE GT SCH (22:00)
[2021-04-09] MEDS: PANTOPRAZOLE SODIUM 40 MG VIAL IVPUSH SCH (22:39)
[2021-04-09] MEDS: CLOTRIMAZOLE 1% VAGINAL CREAM WITH APPLICATOR 45 GM TUBE VG SCH (22:40)
[2021-04-10] MEDS: VANCOMYCIN 1 GRAM (PRE-DOCKED) 1,000 MG/250 ML BAG IVPB SCH ×2 (00:38→11:39)
[2021-04-10] MEDS: SILVER SULFADIAZINE 1% TOP CREAM 50 GM JAR TP SCH ×2 (05:57→13:31)
[2021-04-10] MEDS: INSULIN SLIDING SCALE (NOVOLOG) 1 VIAL SQ SCH ×2 (06:04→11:37)
[2021-04-10] MEDS ORDERED: AMINO ACIDS/PROTEIN HYDROLYS 30 ML LIQUID.PKT PO SCH (08:00)
[2021-04-10] MEDS ORDERED: METOCLOPRAMIDE HCL 10 MG/10 ML UNIT DOSE CUP GT SCH (10:00)
[2021-04-10] MEDS ORDERED: FAMOTIDINE 40 MG/5 ML ORAL SUSPENSION NGT SCH (10:00)
[2021-04-10 10:17] LABS: CALCIUM 7.6 mg/dL (8.5-10.1)
[2021-04-10 10:18] LABS: BLOOD UREA NITROGEN 15.8 mg/dL (7-18)
[2021-04-10] MEDS: ARTIFICIAL TEARS (POLYVINYL ALCOHOL) OPTH DROPS OU SCH (10:55)
[2021-04-10] MEDS: MIDODRINE HCL 5 MG TABLET GT SCH ×2 (10:56→13:31)
[2021-04-10] MEDS: FUROSEMIDE 20 MG TABLET (FP) PEG SCH (10:56)
[2021-04-10] MEDS: HEPARIN NA (PORCINE) 5,000 UNITS/ML 1ML VIAL SQ SCH (10:56)
[2021-04-10] MEDS: LACTOBACILLUS ACIDOPHILUS 1 TABLET GT SCH (10:56)
[2021-04-10] MEDS: FLUDROCORTISONE ACETATE 0.1 MG TABLET (FP) GT SCH (10:56)
[2021-04-10] MEDS: NYSTATIN 100,000 UNIT/GM TOPICAL CREAM 15 GM TUBE TP SCH (10:57)
[2021-04-10] MEDS: DEXTROSE 5%-NORMAL SALINE 1,000 ML IV SCH (10:58)
[2021-04-10] MEDS: MULTIVIT-MINERALS ORAL LIQUID GT SCH (10:58)
[2021-04-10] MEDS ORDERED: POTASSIUM CHLORIDE ORAL LIQUID 20 MEQ/15 ML GT ONE (12:00)
[2021-04-10 17:26] VITALS: BP 160/66; PULSE 80; TEMP 98.7
== END 2021-04-10 17:26 | DRG 394 ==
LOC: JER 18:21 → JERBED 04-07 02:07 → J5S 04-08 12:44
PROVIDERS: ADMIT Internal Medicine; ATTEND Family Medicine
PROC: 5A1945Z Respiratory Ventilation, 24-96 Consecutive Hours (ICD-10-PCS; principal; 2021-04-06)
PROC: 0D20XUZ Change Feeding Device in Upper Intestinal Tract, External Approach (ICD-10-PCS; 2021-04-06)
DX: K94.22 Gastrostomy infection (principal); L03.319 Cellulitis of trunk, unspecified; J96.11 Chronic respiratory failure with hypoxia; L03.311 Cellulitis of abdominal wall; N39.0 Urinary tract infection, site not specified; I50.32 Chronic diastolic (congestive) heart failure; R18.8 Other ascites; K86.2 Cyst of pancreas; J98.11 Atelectasis; K94.23 Gastrostomy malfunction; R14.0 Abdominal distension (gaseous); R13.10 Dysphagia, unspecified; I11.0 Hypertensive heart disease with heart failure; Y83.8 Other surgical procedures as the cause of abnormal reaction of the patient, or of later complication, without mention of misadventure at the time of the procedure; I48.91 Unspecified atrial fibrillation; R59.0 Localized enlarged lymph nodes; G30.9 Alzheimer's disease, unspecified; F02.80 Dementia in other diseases classified elsewhere, unspecified severity, without behavioral disturbance, psychotic disturbance, mood disturbance, and anxiety; K21.9 Gastro-esophageal reflux disease without esophagitis; J44.9 Chronic obstructive pulmonary disease, unspecified; K57.90 Diverticulosis of intestine, part unspecified, without perforation or abscess without bleeding; E11.9 Type 2 diabetes mellitus without complications; I71.9 Aortic aneurysm of unspecified site, without rupture; Z93.1 Gastrostomy status; Z93.0 Tracheostomy status; Z96.641 Presence of right artificial hip joint; Z86.718 Personal history of other venous thrombosis and embolism
CPT/HCPCS: 36415; 71045-TC-FY; 71250-TC; 74177-TC; 80048; 80053; 81003; 82803; 82962; 83605; 84484; 85025; 85610; 85730; 86850; 86900; 86901; 87040; 87086; 93005; 93010; 94002; 99285-25; C9803; J1644; Q9967; U0003; U0005